=== PATIENT | female | born 1950 | race Caucasian/White ===

== ENCOUNTER 2020-10-07 13:22 | Inpatient (IN) | payer MEDICARE, BC ==
[~2020-10-07] VITALS: Ht 167.6 cm; Wt 99.8 kg
[2020-10-07] MEDS ORDERED: LORA-258 PO (13:36)
[2020-10-07] MEDS ORDERED: DILTIAZEM HCL 25 MG IV IV ONE (13:45)
--- NOTE | 2020-10-07 13:45 | NUR ---
Dr Perla at bedside for MSE.
[2020-10-07 13:55] LABS: HEMOGLOBIN 15.5 g/dL (10.9-14.3); MEAN CORPUSCULAR HEMOGLOBIN 31.6 uug (24.7-32.8); RED BLOOD CELL COUNT(AUTO) 4.91 MIL/uL (3.63-4.92)
[2020-10-07] MEDS ORDERED: DILTIAZEM HCL 25 MG IV ONE (13:55)
[2020-10-07 13:59] LABS: BASOPHILS % (AUTO) 0.6 % (0.0-2.0); EOSINOPHILS # (AUTO) 0.2 K/uL (0.0-0.7); EOSINOPHILS % (AUTO) 3.4 % (0.0-7.0); MEAN CORPUSCULAR HGB CONC 34 g/dL (32.3-35.6); MEAN CORPUSCULAR VOLUME 93.7 fL (75.5-95.3); MONOCYTES % (AUTO) 21.1 % (0.0-11.0); NEUTROPHILS # (AUTO) 2.7 K/uL (1.8-8.9); NEUTROPHILS % (AUTO) 54.9 % (38.5-71.5); PLATELET COUNT (AUTO) 227 K/uL (179-408); WHITE BLOOD COUNT (AUTO) 4.9 K/uL (3.8-11.8)
[2020-10-07] MEDS ORDERED: DILTIAZEM HCL 60 MG TABLET PO ONE (14:00)
--- NOTE | 2020-10-07 14:00 | NUR ---
received report on pt from LANIE Prak from ER. pt awake alert and oriented x3, c/o of abdominal spasms and palpitations. Pt has distended abdomen with bulge. pt had kassidy lower leg swelling, bruising on the arm that pr states was from falling. pt on tele monitor, room air saturating at 96% no signs of distress noted, no reports of pain at this time. pt wearing depends, IV access on the right AC 20g. pt cooperative, bed in low and locked position, call light within reach, will continue with plan of care.
[2020-10-07 14:02] LABS: CREATININE 1.2 mg/dL (0.6-1.3); POTASSIUM 3.8 mmol/L (3.5-5.1)
[2020-10-07] MEDS ORDERED: DILTIAZEM HCL 60 MG TABLET ONE (14:05)
[2020-10-07 14:14] LABS: BILIRUBIN,DIRECT 0.2 mg/dL (0.0-0.2); BILIRUBIN,TOTAL 0.5 mg/dL (0.2-1.0); TOTAL PROTEIN, SERUM 6.8 g/dL (6.4-8.2)
--- NOTE | 2020-10-07 14:15 | NUR ---
Pt down to CT, left in stable condition. Accompanied by Ronald DELA CRUZ, on tele monitor, left with HR around 80-90's Afib at rest.
[2020-10-07 14:28] LABS: THYROID STIMULATING HORMONE 2.85 mIU/mL (0.358-3.740)
[2020-10-07 14:32] LABS: MAGNESIUM 1.9 mg/dL (1.8-2.4)
--- NOTE | 2020-10-07 14:52 | NUR ---
Prabhakar Parrish OPERATIONS RESEARCH MANAGER accepted patient for admission. Telemetry, Dx: Afib with RVR, new onset. COVID 19 (-) result also back. Called 3rd floor for room, and notified them of the results and admission.
--- NOTE | 2020-10-07 14:53 | NUR ---
Belongings list completed and kept close to patient.
--- NOTE | 2020-10-07 15:00 | NUR ---
Dr. Perla s/w Dr. Arreola for surgery consult.
--- NOTE | 2020-10-07 15:09 | NUR ---
Dr Arreola in ER for consult.
--- NOTE | 2020-10-07 15:20 | NUR ---
Report given to Zenaida DELA CRUZ.
--- NOTE | 2020-10-07 15:33 | NUR ---
Hector Parrish NP, hospitalist, is at bedside for MSE.
[2020-10-07 15:44] VITALS: BP 102/56
[2020-10-07] MEDS ORDERED: ONDANSETRON 4 MG/2 ML VIAL IV PRN (16:00)
[2020-10-07] MEDS ORDERED: MAGNESIUM HYDROXIDE 30 ML LIQUID UDC PO PRN (16:00)
[2020-10-07] MEDS ORDERED: Z GUARD REMEDY PASTE 57 GM TUBE TOP PRN (16:00)
[2020-10-07] MEDS ORDERED: ACETAMINOPHEN 325 MG TABLET PO PRN (16:00)
[2020-10-07] MEDS ORDERED: DIATR MEGLU/DIATRIZOATE SODIUM 30 ML BOTTLE ONE (16:20)
--- NOTE | 2020-10-07 18:00 | NUR ---
pt was notified that her car would be towed if left in from of the emergency drive way. Pt was flustered and was taken down to the emergency entrance to move her car because she did not have anyone call to move it for her. She was upset the entire way to the car, she yelled at security for "calling the tow truck on a sick patient." She stated that "if she falls in the parking lot it would be the hospitals liability". Security was called to check on pt and escort her back to her hospital room. pt is now in bed resting watching tv. Will endorse to oncoming nurse.
[2020-10-07] MEDS: HYDROCODONE/APAP 5-325MG TABLET PO PRN (18:49)
[2020-10-07 18:50] LABS: BAND % (MANUAL) 8 % (0-10); EOSINOPHILS % (MANUAL) 2 % (0-8); LYMPHOCYTES % (MANUAL) 23 % (20-40); METAMYELOCYTES % 1 % (0-1); MONOCYTES % (MANUAL) 11 % (2-10); NEUTROPHILS % (MANUAL) 55 % (42-75)
--- NOTE | 2020-10-07 19:30 | NUR ---
PATIENT ALERT ORIENTED, NO SOB NO CHEST PAIN, TELE MONITOR SINUS RHYTHM AT THIS TIME. PATIENT COMPLAIN OF ABDOMINAL PAIN, MEDICATED EARLIER BY AM RN, CONT TO MONITOR.
[2020-10-07 20:00] VITALS: BP 115/56
[2020-10-07] MEDS: IV D5 1/2 NS 1000 ML 1,000 ML IV PRN (21:42)
[2020-10-07] MEDS: LORAZEPAM 0.5 MG TABLET PO PRN (22:02)
[2020-10-08] VITALS: BP 118/58
--- NOTE | 2020-10-08 01:12 | NUR ---
PATIENT VOMIT WITH SMALL AMOUNT OF CLEAR COLOR VOMITUS, INSTRUCTED NOT TO TAKE ANYTHING BY MOUTH NOW. GIVEN ZOFRAN IV CONT TO MONITOR.
--- NOTE | 2020-10-08 03:00 | NUR ---
PATIENT VOMIT SMALL AMOUNT OF BROWNISH COLOR VOMITUS, HAD LBM IN SMALL AMOUNT, INSTRUCTED PATIENT NOT EAT OR DRINK AT THIS TIME. PATIENT ASSISTED WITH TOILETING, CONT TO MONITOR.
[2020-10-08 04:03] VITALS: BP 124/66
[2020-10-08 06:46] LABS: BASOPHILS % (AUTO) 0.4 % (0.0-2.0); EOSINOPHILS % (AUTO) 1.1 % (0.0-7.0); HEMATOCRIT 42.7 % (31.2-41.9); LYMPHOCYTES # (AUTO) 0.4 K/uL (20.0-40.0); LYMPHOCYTES % (AUTO) 12.7 % (20.5-51.5); MEAN CORPUSCULAR HEMOGLOBIN 30.8 uug (24.7-32.8); MEAN CORPUSCULAR HGB CONC 33 g/dL (32.3-35.6); MEAN CORPUSCULAR VOLUME 93.9 fL (75.5-95.3); MONOCYTES # (AUTO) 0.5 K/uL (2.0-10.0); MONOCYTES % (AUTO) 16.5 % (0.0-11.0); NEUTROPHILS # (AUTO) 2.2 K/uL (1.8-8.9); NEUTROPHILS % (AUTO) 69.3 % (38.5-71.5); PLATELET COUNT (AUTO) 190 K/uL (179-408); RED BLOOD CELL COUNT(AUTO) 4.55 MIL/uL (3.63-4.92); WHITE BLOOD COUNT (AUTO) 3.2 K/uL (3.8-11.8)
[2020-10-08 06:48] LABS: BILIRUBIN,TOTAL 0.6 mg/dL (0.2-1.0); CREATININE 1.3 mg/dL (0.6-1.3); MAGNESIUM 1.8 mg/dL (1.8-2.4); POTASSIUM 3.8 mmol/L (3.5-5.1); TOTAL PROTEIN, SERUM 6.2 g/dL (6.4-8.2)
--- NOTE | 2020-10-08 07:04 | NUR ---
Patient has no further episode of vomiting, and lose bowel movement. cont to instruct patient not to drink or eat at this time. patient tele monitor with episode of pvc but unstainable., cont to monitor.
--- NOTE | 2020-10-08 07:30 | NUR ---
PATIENT RESTING IN BED WITH EYES OPEN. PATIENT VERBALIZES HER ANXIETY REGARDING HER HOSPITALIZATION. PATIENT REFUSED ATIVAN AT THIS TIME. LISTENED TO PATIENT'S WORRIES AND REASSURED HER BY EDUCATING HER ON PROCEDURES AND PROVIDING COMFORT CARE. PATIENT VERBALIZED THAT SHE HAS NO PAIN AT THIS TIME. PATIENT'S SKIN REMAINS INTACT. TELEMETRY IS SINUS RHYTHM AT THIS TIME. PATIENT HAS IVF RUNNING ORDERED AT 75 ML/H. PERSONAL BELONGINGS AND CALL LIGHT WITHIN EASY REACH. WILL CONTINUE TO MONITOR.
[2020-10-08 08:00] VITALS: BP 100/47
--- NOTE | 2020-10-08 09:00 | NUR ---
[facility] PROVIDER HARRISON AT PATIENT'S BEDSIDE. NO NEW ORDERS AT THIS TIME.
[2020-10-08 12:39] VITALS: BP 96/44
--- NOTE | 2020-10-08 13:00 | NUR ---
PROFESSOR OF BIOSTATISTICS DR ROMAN HERE AT BEDSIDE. NEW ORDER FOR METOPROLOL 12.5 MG BID NOTED AT THIS TIME.
[2020-10-08 14:56] LABS: EOSINOPHILS % (MANUAL) 1 % (0-8); LYMPHOCYTES % (MANUAL) 13 % (20-40); MONOCYTES % (MANUAL) 18 % (2-10); NEUTROPHILS % (MANUAL) 68 % (42-75)
--- NOTE | 2020-10-08 15:00 | NUR ---
Patient screaming on telephone speaking with onsite case manager with speaker on high. Instructed that it is too noisy, speaker on too loud. Other patients are disturbed and intimidated by the noise. Request that nurse can close the door.
[2020-10-08] MEDS: IV D5 1/2 NS 1000 ML 1,000 ML IV PRN (16:31)
--- NOTE | 2020-10-08 16:36 | NUR ---
PATIENT REMINDED THAT WE ARE WAITING FOR A URINE SAMPLE. PATIENT STATES THAT SHE HAS VOIDED, BUT KEEPS FORGETTING. REMINDED PATIENT THAT COLLECTION HAT IS PLACED ON THE TOILET AND WILL CONTINUE TO PROVIDE REINFORCEMENTS NEEDED. PATIENT HAS NO COMPLAINTS OF N/V OR PAIN AT THIS TIME AND IS RESTING COMFORTABLY IN BED WATCHING TV. WILL CONTINUE TO MONITOR.
[2020-10-08 16:54] VITALS: BP 105/55
[2020-10-08] MEDS: HYDROCODONE/APAP 5-325MG TABLET PO PRN (19:42)
[2020-10-08] MEDS: MORPHINE SULFATE 2 MG/1 ML DISP.SYRIN IV PRN (19:50)
[2020-10-08 20:06] VITALS: BP 96/55
[2020-10-08] MEDS: METOPROLOL TARTRATE 25 MG TABLET PO SCH (20:32)
[2020-10-09] VITALS: BP 133/78
[2020-10-09] MEDS: MORPHINE SULFATE 2 MG/1 ML DISP.SYRIN IV PRN ×2 (01:38→05:33)
[2020-10-09 02:27] LABS: *BILIRUBIN,URIN NEGATIVE (NEGATIVE); *BLOOD, URINE NEGATIVE (NEGATIVE); *CLARITY,URINE HAZY (CLEAR); *COLOR,URINE AMBER (YELLOW); *KETONES,URINE NEGATIVE (NEGATIVE); *UROBILINOGEN,URINE 0.2 E.U./dl (NORMAL); LEUKOCYTE ESTERASE ,URINE NEGATIVE (NEGATIVE); NITRITE, URINE POSITIVE (NEGATIVE); UGLUCOSE NEGATIVE (NEGATIVE)
[2020-10-09 02:32] LABS: BACTERIA,URINE MANY /HPF (NONE SEEN); RBC,URINE 0-3 /HPF (0-3); SQUAMOUS EPITHELIAL CELL,UR MODERATE /HPF (NONE SEEN)
[2020-10-09 04:06] VITALS: BP 110/54
[2020-10-09] MEDS: IV D5 1/2 NS 1000 ML 1,000 ML IV PRN ×2 (05:38→18:46)
--- NOTE | 2020-10-09 06:36 | NUR ---
Pt slept intermittently throughout the night. Denies pain or SOB. SR on monitor with PACs and PVCs. Denies chest pain. Refused blood work this AM and requests that it be done later. Requested Morphine throughout the night for pain management. Maintained NPO status throughout the night. Bed is locked and in lowest position, call light is within reach. Urine sent to lab. No other issues or concerns at this time, will endorse to day shift.
[2020-10-09 08:00] VITALS: BP 133/78
[2020-10-09] MEDS: LORAZEPAM 0.5 MG TABLET PO PRN (08:24)
[2020-10-09] MEDS: METOPROLOL TARTRATE 25 MG TABLET PO SCH ×2 (09:00→20:13)
[2020-10-09 11:29] VITALS: BP 136/85
[2020-10-09 15:57] VITALS: BP 124/59
--- NOTE | 2020-10-09 19:19 | NUR ---
Patient AOx3. on room air. Patient has Right FA #20 IV access with D5 1/2 NS running at 75cc/hr. no signs of acute distress. compliant with medication and care. no complaints of pain. safety and comfort measures given. will endorse to incoming shift.
[2020-10-09] MEDS: ENOXAPARIN SODIUM 40 MG/0.4 ML DISP.SYRIN SQ SCH (20:17)
[2020-10-09 20:27] VITALS: BP 109/55
[2020-10-10 01:04] VITALS: BP 115/61
[2020-10-10] MEDS: MORPHINE SULFATE 2 MG/1 ML DISP.SYRIN IV PRN (01:33)
[2020-10-10 05:37] VITALS: BP 115/69
[2020-10-10 05:54] LABS: BASOPHILS # (AUTO) 0.2 K/uL (0.0-8.0); BASOPHILS % (AUTO) 3.6 % (0.0-2.0); EOSINOPHILS # (AUTO) 0.1 K/uL (0.0-0.7); EOSINOPHILS % (AUTO) 2.2 % (0.0-7.0); HEMATOCRIT 36.5 % (31.2-41.9); HEMOGLOBIN 12.6 g/dL (10.9-14.3); LYMPHOCYTES # (AUTO) 0.8 K/uL (20.0-40.0); LYMPHOCYTES % (AUTO) 20.2 % (20.5-51.5); MEAN CORPUSCULAR HEMOGLOBIN 32.1 uug (24.7-32.8); MEAN CORPUSCULAR HGB CONC 35 g/dL (32.3-35.6); MEAN CORPUSCULAR VOLUME 93.2 fL (75.5-95.3); MONOCYTES # (AUTO) 1.3 K/uL (2.0-10.0); MONOCYTES % (AUTO) 30.2 % (0.0-11.0); NEUTROPHILS # (AUTO) 1.8 K/uL (1.8-8.9); NEUTROPHILS % (AUTO) 43.8 % (38.5-71.5); PLATELET COUNT (AUTO) 187 K/uL (179-408); RED BLOOD CELL COUNT(AUTO) 3.92 MIL/uL (3.63-4.92); WHITE BLOOD COUNT (AUTO) 4.2 K/uL (3.8-11.8)
[2020-10-10 06:01] LABS: BILIRUBIN,TOTAL 0.5 mg/dL (0.2-1.0); MAGNESIUM 1.7 mg/dL (1.8-2.4); POTASSIUM 3.6 mmol/L (3.5-5.1); TOTAL PROTEIN, SERUM 5.8 g/dL (6.4-8.2)
[2020-10-10 06:22] LABS: BAND % (MANUAL) 4 % (0-10); EOSINOPHILS % (MANUAL) 2 % (0-8); LYMPHOCYTES % (MANUAL) 22 % (20-40); MONOCYTES % (MANUAL) 21 % (2-10); NEUTROPHILS % (MANUAL) 51 % (42-75)
[2020-10-10 06:24] LABS: BAND % (MANUAL) 4 % (0-10); EOSINOPHILS % (MANUAL) 2 % (0-8); LYMPHOCYTES % (MANUAL) 22 % (20-40); MONOCYTES % (MANUAL) 21 % (2-10); NEUTROPHILS % (MANUAL) 51 % (42-75)
--- NOTE | 2020-10-10 06:42 | NUR ---
Pt slept intermittently throughout the night. Kept NPO status. Diet changed to Full Liquid but kept NPO for Small Bowel Xray this AM. Denies pain or SOB at this time. No distress noted. Dr. Arreola updated and he stated he wants patient to ambulate more today. IV site patent and intact. Bed is locked and in lowest position, no other issues at this time. Will endorse to day shift.
--- NOTE | 2020-10-10 07:30 | NUR ---
RECEIVED IN BED AWAKE ALERT AND ORIENTED ON IVF ORDERED WITH NO S/S OF INFILTERQATION ON SITE SHE IS ALERT AND ORIENTED SHE IS NPO AT THIS TIME PENDING THE SMALL BOWEL SERIES ORDERED AND PATIENT IS AWARE CALL LIGHTS AND HER PERSONAL BELONGINGS ARE WITHIN EASY REACH AT THIS TIME WILL CONTINUE TO OBSERVE.
[2020-10-10] MEDS: IV D5 1/2 NS 1000 ML 1,000 ML IV PRN (08:33)
[2020-10-10] MEDS ORDERED: MAGNESIUM SULFATE/D5W 100 ML IV SCH (08:45)
--- NOTE | 2020-10-10 08:58 | NUR ---
RADIOLOGY DEPARTMENT HERE FOR SMALL BOWEL SERIES ORDERED BUT PATIENT REFUSED HARRISON HERE AND NOTIFIED AND HE STATED OKAY WILL CANCEL IT.
[2020-10-10] MEDS ORDERED: ENOXAPARIN SODIUM 100 MG/ML DISP.SYRIN SQ SCH (09:00)
[2020-10-10] MEDS: METOPROLOL TARTRATE 25 MG TABLET PO SCH (09:00)
--- NOTE | 2020-10-10 09:30 | NUR ---
FULL LIQUIDS DIET GIVEN TO PATIENT ORDERED AND SHE ONLY DRANK THE ENSURE AND THE COFFEE STATED WANTS TO TAKE IT EASY FIRST
--- NOTE | 2020-10-10 09:44 | NUR ---
PATIENT SEEN BY THE PHYSICAL THERAPIST FOR THERAPEUTIC EXERCISES AND SHE WALKED WITH THE FRONT WHEEL WALKER IN THE FRITZ WAY WITH FAIR ENDURANCE TOLERATED WELL
[2020-10-10 11:32] VITALS: BP 137/68
--- NOTE | 2020-10-10 13:29 | NUR ---
IV HEPLOCK PULLED OUT ACCIDENTLY AT THIS TIME PATIENT REFUSED TO HAVE A NEW ONE PLACED STATED SINCE HE WILL NOT BE GETTING ANYTHING THROUGH THERE.
[2020-10-10 16:00] VITALS: BP 119/69
--- NOTE | 2020-10-10 18:00 | NUR ---
PATIENT IS RESTING IN BED UP IN AND OUT OF THE BATHROOM [place] DIET ORDERED DENIES NAUSEA NO DIARRHEA EPISODES AT THIS TIME.WILL CONTINUE TO OBSERVE
[2020-10-10 20:06] VITALS: BP 145/79
[2020-10-10] MEDS: ENOXAPARIN SODIUM 40 MG/0.4 ML DISP.SYRIN SQ SCH (21:01)
[2020-10-10] MEDS: HYDROCODONE/APAP 5-325MG TABLET PO PRN (22:28)
[2020-10-11 00:03] VITALS: BP 117/58
[2020-10-11 04:09] VITALS: BP 148/79
--- NOTE | 2020-10-11 06:26 | NUR ---
Pt slept throughout the night. Denies SOB. Bed is locked and in lowest position, call light within reach. Attempted to restart IV, pt declined. Keeps stating that she wants to go home and leave the hospital. Pt states that abdominal discomfort is subsiding and getting better. No other issues or concerns at this time, will endorse to day shift.
[2020-10-11 06:28] LABS: BASOPHILS # (AUTO) 0.1 K/uL (0.0-8.0); BASOPHILS % (AUTO) 0.8 % (0.0-2.0); EOSINOPHILS # (AUTO) 0.1 K/uL (0.0-0.7); EOSINOPHILS % (AUTO) 1.9 % (0.0-7.0); HEMATOCRIT 40.7 % (31.2-41.9); HEMOGLOBIN 13.7 g/dL (10.9-14.3); LYMPHOCYTES # (AUTO) 0.9 K/uL (20.0-40.0); LYMPHOCYTES % (AUTO) 13.7 % (20.5-51.5); MEAN CORPUSCULAR HEMOGLOBIN 31.2 uug (24.7-32.8); MEAN CORPUSCULAR HGB CONC 34 g/dL (32.3-35.6); MEAN CORPUSCULAR VOLUME 92.9 fL (75.5-95.3); MONOCYTES # (AUTO) 1.4 K/uL (2.0-10.0); NEUTROPHILS # (AUTO) 4.4 K/uL (1.8-8.9); NEUTROPHILS % (AUTO) 63.6 % (38.5-71.5); PLATELET COUNT (AUTO) 217 K/uL (179-408); RED BLOOD CELL COUNT(AUTO) 4.38 MIL/uL (3.63-4.92); WHITE BLOOD COUNT (AUTO) 6.9 K/uL (3.8-11.8)
[2020-10-11 06:36] LABS: CREATININE 0.8 mg/dL (0.6-1.3); POTASSIUM 3.5 mmol/L (3.5-5.1)
[2020-10-11 07:41] LABS: BASOPHILS % (MANUAL) 1 % (0-2); EOSINOPHILS % (MANUAL) 2 % (0-8); LYMPHOCYTES % (MANUAL) 10 % (20-40); MONOCYTES % (MANUAL) 16 % (2-10); MYELOCYTES % 1 % (0-0); NEUTROPHILS % (MANUAL) 70 % (42-75)
--- NOTE | 2020-10-11 08:00 | NUR ---
PATIENT IN ROOM LOOKING VERY ANXIOUS AND WANTS TO GO HOME, NO SS OF DISTRESS OR ACUTE ABDOMINAL PAIN , SR ON MONITOR. AWAITING MD TO FOLLOW-UP
[2020-10-11] MEDS ORDERED: POTASSIUM CHLORIDE 20 MEQ POWDER PACKET PO ONE (09:30)
[2020-10-11 11:33] VITALS: BP 160/71
[2020-10-11] MEDS ORDERED: APIX5TAB PO (12:45)
--- NOTE | 2020-10-11 12:45 | NUR ---
SEEN BY HOSPITALIST AND ADVISED PATIENT TO FOLLOW-UP GENERAL SURGEON AND PCP, PATIENT PREFERS TO GO HOME IN SPITE OF MD ADVISED.
[2020-10-11 15:52] VITALS: BP 125/68
--- NOTE | 2020-10-11 17:00 | NUR ---
DISCHARGE HOME AMA WITH RX AND FOLLOW-UP INSTRUCTION.
[2020-10-11 22:24] LABS: ALBUMIN 2.6 LOW
[2020-10-11 22:25] LABS: ALPHA-1-GLOBULIN 0.3; ALPHA-2-GLOBULIN 0.8; BETA GLOBULIN 0.9
[2020-10-11 22:26] LABS: GAMMA GLOBULIN 0.7; GLOBULIN, TOTAL 2.7; M-SPIKE Not Observed
== END 2020-10-11 17:00 | disposition left against medical advice (07) | DRG 393 ==
LOC: ER 13:22 → TELE3 15:28
PROVIDERS: ADMIT Nurse Practitioner Acute Care; ATTEND Nurse Practitioner Family
DX: K43.0 Incisional hernia with obstruction, without gangrene (principal); N17.0 Acute kidney failure with tubular necrosis; D68.69 Other thrombophilia; E44.0 Moderate protein-calorie malnutrition; I48.0 Paroxysmal atrial fibrillation; F39 Unspecified mood [affective] disorder; F41.9 Anxiety disorder, unspecified; Z86.718 Personal history of other venous thrombosis and embolism; E88.09 Other disorders of plasma-protein metabolism, not elsewhere classified; Z90.710 Acquired absence of both cervix and uterus; Z85.42 Personal history of malignant neoplasm of other parts of uterus; E66.01 Morbid (severe) obesity due to excess calories; Z68.35 Body mass index [BMI] 35.0-35.9, adult; Z20.822 Contact with and (suspected) exposure to COVID-19; Z71.3 Dietary counseling and surveillance; I35.0 Nonrheumatic aortic (valve) stenosis; R73.9 Hyperglycemia, unspecified
CPT/HCPCS: 36415; 70030-TC; 71045; 74250; 83605; 83690; 83735; 83970; 84100; 84155; 84165; 84443; 85025; 85730; 87086; 93005; 93307; A4663; G0378; J1650; J2270; J2405; J3475; J3490; Q9963

== ENCOUNTER 2021-04-12 16:47 | Emergency (ER) | payer MEDICARE ==
[~2021-04-12] VITALS: Ht 165.1 cm; Wt 90.7 kg
[~2021-04-12 16:47] MED LIST: APIX5TAB PO
[2021-04-12] MEDS ORDERED: KETOROLAC TROMETHAMINE 15 MG INJ IVP ONE (17:00)
[2021-04-12] MEDS ORDERED: IV NORMAL SALINE 1000 ML BAG IV ONE (17:00)
[2021-04-12] MEDS ORDERED: ONDANSETRON 4 MG/2 ML VIAL IV ONE (17:00)
[2021-04-12] MEDS ORDERED: ONDANSETRON 4 MG/2 ML VIAL ONE (17:08)
[2021-04-12] MEDS ORDERED: KETOROLAC TROMETHAMINE 30 MG INJ ONE (17:08)
[2021-04-12] MEDS ORDERED: DICYCLOMINE HCL LIQ 10 MG/5 ML UDC ONE (17:08)
[2021-04-12 17:09] LABS: HEMATOCRIT 47.5 % (31.2-41.9); MEAN CORPUSCULAR HEMOGLOBIN 31.2 uug (24.7-32.8); MEAN CORPUSCULAR VOLUME 93.4 fL (75.5-95.3); PLATELET COUNT (AUTO) 206 K/uL (179-408)
[2021-04-12] MEDS: DICYCLOMINE HCL 10 MG CAPSULE PO PRN (17:10)
[2021-04-12 17:17] LABS: CREATININE 0.9 mg/dL (0.6-1.3); POTASSIUM 4.1 mmol/L (3.5-5.1)
[2021-04-12 17:23] LABS: BILIRUBIN,DIRECT 0.1 mg/dL (0.0-0.2); BILIRUBIN,TOTAL 0.5 mg/dL (0.2-1.0); TOTAL PROTEIN, SERUM 7.2 g/dL (6.4-8.2)
[2021-04-12] MEDS ORDERED: ONDA4TAB11 PO (17:39)
[2021-04-12] MEDS ORDERED: DICY10CA13 PO (17:39)
--- NOTE | 2021-04-12 17:40 | NUR ---
pt tolerated po challenge.
[2021-04-12 17:54] VITALS: BP 141/69
--- NOTE | 2021-04-12 17:54 | NUR ---
Patient discharged to home in stable condition. Written and verbal after care instructions given. Patient verbalizes understanding of instructions. Stressed follow up or return to ER for worsening s/s.pt walks in steady gait.
[2021-04-12 17:56] LABS: BAND % (MANUAL) 2 % (0-10); LYMPHOCYTES % (MANUAL) 23 % (20-40); NEUTROPHILS % (MANUAL) 50 % (42-75)
[2021-04-12 17:57] LABS: MONOCYTES % (MANUAL) 25 % (2-10)
== END 2021-04-12 17:55 | disposition home or self-care (01) ==
LOC: ER 16:50
DX: R10.9 Unspecified abdominal pain (principal); R11.2 Nausea with vomiting, unspecified; K43.9 Ventral hernia without obstruction or gangrene; E86.0 Dehydration; R03.0 Elevated blood-pressure reading, without diagnosis of hypertension; Z85.42 Personal history of malignant neoplasm of other parts of uterus; N32.81 Overactive bladder; F41.9 Anxiety disorder, unspecified; Z90.710 Acquired absence of both cervix and uterus; I48.91 Unspecified atrial fibrillation; Z79.01 Long term (current) use of anticoagulants
CPT/HCPCS: 36415; 80048; 80076; 83690; 84484; 85007; 85025; 93005; 96361; 96374; 96375; 99284; J1885; J2405; 70030-TC; A4663; J7030

== ENCOUNTER 2021-05-09 07:24 | Emergency (ER) | payer MEDICARE ==
[~2021-05-09] VITALS: Ht 170.2 cm; Wt 90.7 kg
[~2021-05-09 07:24] MED LIST changes: +DICY10CA13 PO; +ONDA4TAB11 PO
--- NOTE | 2021-05-09 08:28 | NUR ---
Patient is AOx4, "I want to wait in the waiting room. My cellphone does not work inside the room." per patient's verbalization.
--- NOTE | 2021-05-09 08:44 | NUR ---
MD is in the waiting room attempting to examine this patient. Patient does not want to be in her room (ER bed-5A)@this time.
[2021-05-09 09:15] LABS: HEMATOCRIT 41.9 % (31.2-41.9); MEAN CORPUSCULAR HEMOGLOBIN 31.1 uug (24.7-32.8); MEAN CORPUSCULAR VOLUME 93.1 fL (75.5-95.3); PLATELET COUNT (AUTO) 243 K/uL (179-408)
[2021-05-09 09:22] LABS: CREATININE 0.9 mg/dL (0.6-1.3); POTASSIUM 3.9 mmol/L (3.5-5.1)
--- NOTE | 2021-05-09 09:29 | NUR ---
Patient is back in her room, after moving her car from a "no parking zone" as instructed by network security engineer Sarmad. Radiology department notified re: ultrasound scan please.
[2021-05-09 09:35] LABS: BILIRUBIN,DIRECT 0.1 mg/dL (0.0-0.2); BILIRUBIN,TOTAL 0.4 mg/dL (0.2-1.0); TOTAL PROTEIN, SERUM 7.3 g/dL (6.4-8.2)
--- NOTE | 2021-05-09 10:04 | NUR ---
Patient wants to see a professor of social work. Enedina was called.
--- NOTE | 2021-05-09 10:12 | NUR ---
[email or web address].
--- NOTE | 2021-05-09 11:08 | NUR ---
Patient and social media analyst are talking to each other, pending disposition.
--- NOTE | 2021-05-09 11:31 | NUR ---
Social Work APS Report Protective Services Report (Intake ID [id number]) was submitted on 05/09/2021 at 11:27 AM. A copy of the report is placed in the patient's chart.
[2021-05-09] MEDS ORDERED: CEPH500C2 PO (11:40)
--- NOTE | 2021-05-09 11:52 | NUR ---
Patient denies being homeless and stays in her condo unit. Patient discharged to home in stable condition with steady gait. Written and verbal after care instructions given to patient. Patient verbalized understanding and compliance of instructions. Stressed follow up with primary doctor or return to ER for worsening s/s.
--- NOTE | 2021-05-09 13:50 | NUR ---
Social Work Consult Patient requested to speak with social work professor. Patient is alert and oriented x4. Patient presented with a depressed mood and flat affect. Patient was not groomed well, unkept, and dirty. Patient appeared to not be able to keep up with proper hygiene. Patient was able to engage in conversation with social work professor about her current needs. Patient stated that she was in need of an missile mechanic due to the home owners association trying to get her out of her home. form worker encouraged patient to reach out to current missile mechanic. form worker provided patient with mental health resources [facility] [address] [place] [address], [place] well [place] [address] . form worker provided patient with Senior Resource Guide that included grief and bereavement resources, caregiver support, and senior centers. Plan: form worker will report an APS for self neglect.
== END 2021-05-09 12:28 | disposition home or self-care (01) ==
LOC: ER 07:24
DX: L03.116 Cellulitis of left lower limb (principal); Z59.89 Other problems related to housing and economic circumstances; Z85.89 Personal history of malignant neoplasm of other organs and systems; I48.91 Unspecified atrial fibrillation; Z79.01 Long term (current) use of anticoagulants; Z90.710 Acquired absence of both cervix and uterus; N32.81 Overactive bladder; Z79.899 Other long term (current) drug therapy
CPT/HCPCS: 36415; 70030-TC; 83605; 85025; 87040; A4663

== ENCOUNTER 2021-06-04 18:21 | Inpatient (IN) | payer MEDICARE ==
[~2021-06-04] VITALS: Ht 170.2 cm; Wt 98.9 kg
[~2021-06-04 18:21] MED LIST changes: +CEPH500C2 PO
[2021-06-04] MEDS ORDERED: IV NORMAL SALINE 1000 ML BAG IV ONE (19:15)
[2021-06-04 19:37] LABS: MEAN CORPUSCULAR HEMOGLOBIN 31.2 uug (24.7-32.8); PLATELET COUNT (AUTO) 215 K/uL (179-408)
[2021-06-04 19:51] LABS: ETHANOL < 3 MG/DL (0-0)
[2021-06-04 19:58] LABS: CARBON DIOXIDE 29 mmol/L (21-32); CHLORIDE 101 mmol/L (98-107); CREATININE 1.1 mg/dL (0.6-1.3); GLUCOSE 123 mg/dL (74-106); POTASSIUM 4.2 mmol/L (3.5-5.1); UREA NITROGEN, BLOOD 20 mg/dL (7-18)
[2021-06-04 20:03] LABS: ALANINE AMINOTRANSFERASE 22 U/L (14-59); ALKALINE PHOSPHATASE 73 U/L (50-136); ASPARTATE AMINOTRANSFERASE 32 U/L (15-37); BILIRUBIN,DIRECT 0.2 mg/dL (0.0-0.2); BILIRUBIN,TOTAL 0.7 mg/dL (0.2-1.0); MAGNESIUM 1.8 mg/dL (1.8-2.4); PHOSPHOROUS 3.7 mg/dL (2.5-4.9); TOTAL PROTEIN, SERUM 7.7 g/dL (6.4-8.2)
[2021-06-04 20:04] LABS: THYROID STIMULATING HORMONE 2.216 mIU/mL (0.358-3.740)
[2021-06-04] MEDS ORDERED: VANCOMYCIN IV 1,500 MG in IV DEXTROSE 5% 500 ML IV STA (20:47)
[2021-06-04] MEDS ORDERED: FUROSEMIDE 40 MG/4 ML VIAL IV ONE (21:00)
[2021-06-04] MEDS ORDERED: VANCOMYCIN HCL 500 MG VIAL ONE ×2 (22:13→22:19)
[2021-06-04] MEDS ORDERED: VANCOMYCIN IV 200 ML ONE (22:13)
[2021-06-04] MEDS ORDERED: FUROSEMIDE 40 MG/4 ML VIAL ONE (22:13)
[2021-06-04] MEDS ORDERED: VANCOMYCIN 1000 MG VIAL ONE (22:19)
--- NOTE | 2021-06-04 22:35 | NUR ---
Pt. admitted to Med/Surg, under care of Tim Dx: Left Foot Cellulitis/Edema Belongs List completed
--- NOTE | 2021-06-04 22:35 | NUR ---
Received report from ER nurse.
[2021-06-04] MEDS ORDERED: MAGNESIUM HYDROXIDE 30 ML LIQUID UDC PO PRN (22:45)
[2021-06-04] MEDS ORDERED: Z GUARD REMEDY PASTE 57 GM TUBE TOP PRN (22:45)
[2021-06-04] MEDS ORDERED: ZOLPIDEM 5 MG TABLET PO PRN (22:45)
[2021-06-04] MEDS ORDERED: ONDANSETRON 4 MG/2 ML VIAL IV PRN (22:45)
--- NOTE | 2021-06-04 22:55 | NUR ---
Received patient via [employer]. AOx4. IV on right AC gauge 20 running Vancomycin IV 1,500 mg in IV D5% 500ml running at 250ml/hr. Patient is admitted to medical surgical floor with leg foot cellulitis as her admitted diagnosis. Established nurse-patient rapport. Oriented patient to room, bed and call light button, patient verbalized understanding. Patient denies SOB, chest pain or dizziness at this time. Will continue to monitor.
--- NOTE | 2021-06-04 23:15 | NUR ---
Patient's IV site on R AC was dislodged, requested for midline nurse's assistance. Noted patient's skin issues, cleansed with NS, photos were taken and attached to chart.
[2021-06-05 00:03] LABS: *BILIRUBIN,URIN NEGATIVE (NEGATIVE); *CLARITY,URINE SLIGHTLY CLOUDY (CLEAR); *COLOR,URINE LIGHT YELLOW (YELLOW); *KETONES,URINE NEGATIVE (NEGATIVE); *UROBILINOGEN,URINE 0.2 E.U./dl (NORMAL); LEUKOCYTE ESTERASE ,URINE 1+ (NEGATIVE); NITRITE, URINE POSITIVE (NEGATIVE); UGLUCOSE NEGATIVE (NEGATIVE)
[2021-06-05 00:14] LABS: *AMPHETAMINE, URINE NEGATIVE (NEGATIVE); *CANNABINOID, URINE NEGATIVE (NEGATIVE); *COCCAINE, URINE NEGATIVE (NEGATIVE); *OPIATE, URINE NEGATIVE (NEGATIVE); *PHENCYCLIDINE SCREEN,URINE NEGATIVE (NEGATIVE)
[2021-06-05 00:20] VITALS: BP 126/41
--- NOTE | 2021-06-05 00:30 | NUR ---
IV was reinserted. IV left upper arm midline, gauge 20.
[2021-06-05] MEDS: APIXABAN 5 MG TABLET PO SCH ×3 (00:49→21:00)
[2021-06-05 01:16] LABS: *BLOOD, URINE TRACE (NEGATIVE)
[2021-06-05 02:14] LABS: BACTERIA,URINE MANY /HPF (NONE SEEN); RED BLOOD CELL CASTS,URINE FEW /LPF (NONE SEEN); SQUAMOUS EPITHELIAL CELL,UR FEW /HPF (NONE SEEN)
--- NOTE | 2021-06-05 02:30 | NUR ---
Noted patient's urinary incontinence and urinary frequency, offered patient to insert hamilton catheter to keep scabs found on buttocks and groin clean and dry. However,patient refused despite health teaching.
[2021-06-05] MEDS: PANTOPRAZOLE SODIUM 40 MG TABLET.DR PO SCH (06:30)
[2021-06-05 06:43] LABS: HEMATOCRIT 40.1 % (31.2-41.9); MEAN CORPUSCULAR HEMOGLOBIN 30.9 uug (24.7-32.8); MEAN CORPUSCULAR VOLUME 92.2 fL (75.5-95.3); PLATELET COUNT (AUTO) 188 K/uL (179-408)
--- NOTE | 2021-06-05 06:48 | NUR ---
Patient slept intermittently through the night, now calm. AOx4. No acute distress noted at this time. IV on L UA midline patent and intact. All due medications were given as ordered. Safety measures and aspiration precautions were maintained. Will endorse to day shift nurse.
[2021-06-05 07:00] LABS: CREATININE 1.1 mg/dL (0.6-1.3); MAGNESIUM 1.8 mg/dL (1.8-2.4); PHOSPHOROUS 3.7 mg/dL (2.5-4.9); POTASSIUM 3.6 mmol/L (3.5-5.1)
[2021-06-05 07:16] LABS: NEUTROPHILS % (MANUAL) 0 % (42-75)
[2021-06-05] MEDS ORDERED: CEFTRIAXONE 1 G in IV DEXTROSE 5% 50 ML IV SCH (08:30)
[2021-06-05] MEDS: CEFTRIAXONE 2 G in IV DEXTROSE 5% 100 ML IV SCH (09:34)
[2021-06-05 12:00] VITALS: BP 119/55
--- NOTE | 2021-06-05 12:50 | NUR ---
WOUND CARE CONSULT: PT PRESENTS WITH RASH/CRUSTING AND OPEN AREAS TO BUTTOCKS, PRESENT ON ADMISSION. PT ALSO NOTED TO HAVE REDNESS AND TENDERNESS WITH DISCOLORATION/CALLUS TO LEFT FOOT, PRESENT ON ADMISSION. DPM CONSULT CALLED TO DR CHACON AND SURGICAL CONSULT TO DR YU TAVARES. RECOMMENDATIONS MADE FOR SKIN PROTECTION AND WOUND CARE. DISCUSSED WITH NURSING STAFF. PT IS INCONTINENT. MD IN AGREEMENT WITH PLAN OF CARE.
[2021-06-05] MEDS ORDERED: ASPI-1420 PO (14:42)
[2021-06-05] MEDS ORDERED: VITAMIN D 5000 UNITS PO (14:42)
[2021-06-05] MEDS ORDERED: ASPI81TA31 PO (14:42)
[2021-06-05] MEDS ORDERED: MAGN400C PO (14:42)
[2021-06-05] MEDS ORDERED: ASPI-618 PO (14:42)
[2021-06-05] MEDS ORDERED: MAGN200T5 PO (14:44)
--- NOTE | 2021-06-05 15:22 | NUR ---
Pt is a/o x 4, has bilateral edema on lower extremities. Wound care consult completed, orders in place. Pt is bedbound, PT consult ordered. Pt is incontinent, incontinence is most likely why her bottocks has scabs and wounds. Pt refused hamilton catheter insertion. Pt refuses to have a shower or bed bath, educated on importance of keeping wound clean to allow for healing. Pt wanted to go check on her car, notified her that she is unable to leave hospital room. Placed a case management/ social work consult for pt for housing and resources. States she lives in an apartment but does not have furniture or help, lives alone. Pt is currently resting in room, no signs of acute distress, call light within reach. Will continue to monitor.
--- NOTE | 2021-06-05 16:06 | NUR ---
Clinical Social Work Note SW consult was requested for evaluation on safe discharge. Patient is a 71 year old female who is alert and oriented x4. Patient presents with a depressed mood and flat affect. Patient was not groomed well, unkept, and dirty. Patient appeared to not be able to keep up with proper hygiene. Patient stated that she is currently working on the mold in her home and she has no furniture in her home. SW discussed SNF placement upon discharge, but patient refused. Patient stated that she does not want a SNF and that she would like to return home to take care of her situation. Patient stated that she would be interested in home health. Plan: CM will follow up with case folder to have patient set up with home health.
[2021-06-05 16:14] VITALS: BP 139/46
[2021-06-05] MEDS: CLOTRIMAZOLE 1% CREAM 30 GM TUBE TOP SCH (17:08)
[2021-06-05] MEDS: HYDROCODONE/APAP 5-325MG TABLET PO PRN (17:09)
--- NOTE | 2021-06-05 18:40 | NUR ---
Pt is a/o x 4, dishevelled. Gave patient a semi bed bath, she refuses to have one. Cleaned perineal area and applied dressing to wound on buttocks. Explained importance of cleanliness to pt, she agreed to have a shower once PT is able to clear her. Pt complained of pain in right upper arm and left leg, administered Bentley at 1709, pt stated medication was effective. Pt is currently in bed resting, no complaint of pain, no signs of acute distress. Comfort measures provided, call light within reach. Will endorse to casino shift manager.
[2021-06-05] MEDS ORDERED: LIDOCAINE 5% OINT 35.44 GM TUBE TOP PRN (19:15)
[2021-06-05] MEDS ORDERED: MINERAL OIL/PETROLATUM,WHITE 57 GM TUBE TOP PRN (19:15)
[2021-06-05 20:12] VITALS: BP 112/47
[2021-06-05 21:30] VITALS: BP 112/47
[2021-06-05] MEDS: VANCOMYCIN IV 1,500 MG in IV DEXTROSE 5% 500 ML IV SCH (22:23)
[2021-06-06] MEDS: HYDROCODONE/APAP 5-325MG TABLET PO PRN ×2 (02:16→09:23)
--- NOTE | 2021-06-06 04:17 | NUR ---
Patient is alert oriented x 4, resting in bed, offer to change her linen and bed. patient refused stating she is comfortable, bed weaver provided x2 voided, provided PM care Explained importance of hygiene to patient , she agreed to have a shower once Patient is able to clear her.Pt complained of pain in neck and left leg, administered [place] at 0217 patient stated medication was effective. Pt is currently in bed resting, no complaint of pain, no signs of acute distress. Comfort measures provided, call light within reach. Will endorse to clinical application manager.
[2021-06-06 04:18] VITALS: BP 121/59
--- NOTE | 2021-06-06 06:00 | NUR ---
Patient agreed changed linen, provided fei-care, bed bath given, treatment done as ordered. all due medication administered as ordered. kept clean and dry, call light with in reach. Patient is very concern for her wound Dr. If possible please ask wound Doctor to see her. she has concerns . will endorse accordingly to AM Nurse.
[2021-06-06] MEDS: PANTOPRAZOLE SODIUM 40 MG TABLET.DR PO SCH (06:01)
[2021-06-06 06:38] LABS: HEMATOCRIT 39.4 % (31.2-41.9); MEAN CORPUSCULAR HEMOGLOBIN 31.6 uug (24.7-32.8); PLATELET COUNT (AUTO) 186 K/uL (179-408)
[2021-06-06 06:56] LABS: MAGNESIUM 1.8 mg/dL (1.8-2.4); PHOSPHOROUS 3.6 mg/dL (2.5-4.9)
[2021-06-06] MEDS ORDERED: MAGNESIUM 200 MG PO SCH (09:00)
[2021-06-06] MEDS ORDERED: VITAMIN D 5000 UNIT PO SCH (09:00)
[2021-06-06] MEDS: CHOLECALCIFEROL 1,000 UNIT TABLET PO SCH (09:21)
[2021-06-06] MEDS: GENTAMICIN SULFATE 0.1% OINT 15 GM TUBE TOP SCH (09:21)
[2021-06-06] MEDS: ASPIRIN EC 81 MG TABLET.DR PO SCH (09:21)
[2021-06-06] MEDS: MAGNESIUM OXIDE 250 MG TABLET PO SCH (09:21)
[2021-06-06] MEDS: CLOTRIMAZOLE 1% CREAM 30 GM TUBE TOP SCH ×2 (09:22→17:00)
[2021-06-06] MEDS: APIXABAN 5 MG TABLET PO SCH ×2 (09:24→21:10)
[2021-06-06] MEDS: CEFTRIAXONE 2 G in IV DEXTROSE 5% 100 ML IV SCH (09:34)
--- NOTE | 2021-06-06 11:31 | NUR ---
Social Work APS Report Protective Services Report (Intake ID [id number]) was submitted on 06/06/2021 at 11:14 AM.
--- NOTE | 2021-06-06 19:45 | NUR ---
Patient AAO x4. Patient is upset, screaming at staff. Requested patient to move her vehicle which is inappropriately parked in front of hospital. She became upset. Discussed her health status with Charge Nurse and made security aware if it is okay to leave car where it is now. Security agreed it is okay for car to stay since patient is unable to move it. Patient agrees and was pleased. On RA, no c/o SOB. C/O tenderness to left foot. Needs assessed and met. Call light with in reach.
[2021-06-06 20:00] VITALS: BP 103/44
[2021-06-06] MEDS: VANCOMYCIN IV 1,500 MG in IV DEXTROSE 5% 500 ML IV SCH (21:11)
[2021-06-07] MEDS: ACETAMINOPHEN 325 MG TABLET PO PRN ×2 (03:01→10:53)
[2021-06-07 04:00] VITALS: BP 101/40
[2021-06-07] MEDS: PANTOPRAZOLE SODIUM 40 MG TABLET.DR PO SCH (06:04)
--- NOTE | 2021-06-07 06:51 | NUR ---
Patient remained stable for this shift. No significant events. Wound treatment provided for left foot, thighs and buttocks. Tolerates treatments well. Slept intermittently. Patient is repetitive and anxious. States she is not homeless, states she has a condo but there is a plumbing issue. All needs attended. Call light within reach.
--- NOTE | 2021-06-07 07:15 | NUR ---
Received patient in bed. AOx4. On room air. No signs of acute distress. Patient denies pain/ discomfort at this time. Left UA midline patent and intact. Call light within reach. Bed alarm on for safety. Will continue to monitor.
[2021-06-07] MEDS: CEFTRIAXONE 2 G in IV DEXTROSE 5% 100 ML IV SCH (08:51)
[2021-06-07] MEDS: ASPIRIN EC 81 MG TABLET.DR PO SCH (08:52)
[2021-06-07] MEDS: CHOLECALCIFEROL 1,000 UNIT TABLET PO SCH (08:52)
[2021-06-07] MEDS: APIXABAN 5 MG TABLET PO SCH ×2 (08:53→20:32)
[2021-06-07] MEDS: GENTAMICIN SULFATE 0.1% OINT 15 GM TUBE TOP SCH (09:04)
[2021-06-07] MEDS: CLOTRIMAZOLE 1% CREAM 30 GM TUBE TOP SCH ×2 (09:05→17:09)
[2021-06-07] MEDS: MAGNESIUM OXIDE 250 MG TABLET PO SCH (09:35)
[2021-06-07 11:00] VITALS: BP 118/65
[2021-06-07 15:05] VITALS: BP 111/57
--- NOTE | 2021-06-07 20:00 | NUR ---
Patient AAO x4. On RA, no c/o SOB. C/O tenderness to left foot, elevated on pillow. Midline to left upper arm is intact and patent. Patient made aware she will have [place] Trough level done at 2100, she agrees. Needs assessed and met. Safety measures initiated. Call light with in reach.
[2021-06-07 20:25] VITALS: BP 112/40
[2021-06-07] MEDS: VANCOMYCIN IV 1,500 MG in IV DEXTROSE 5% 500 ML IV SCH (22:33)
[2021-06-08] MEDS: ACETAMINOPHEN 325 MG TABLET PO PRN (00:28)
[2021-06-08 04:00] VITALS: BP 115/51
[2021-06-08] MEDS: PANTOPRAZOLE SODIUM 40 MG TABLET.DR PO SCH (06:32)
--- NOTE | 2021-06-08 06:51 | NUR ---
Patient slept intermittent tis shift. No significant events. Wound treatment provided for left foot, thighs and buttocks. Tolerates treatments well. Able to make needs known. Patient is repetitive and anxious. Emotional support provided. All needs attended. Call light within reach.
[2021-06-08] MEDS ORDERED: SULF1TAB47 PO (07:42)
[2021-06-08] MEDS: CHOLECALCIFEROL 1,000 UNIT TABLET PO SCH (08:10)
[2021-06-08] MEDS: ASPIRIN EC 81 MG TABLET.DR PO SCH (08:10)
[2021-06-08] MEDS: APIXABAN 5 MG TABLET PO SCH (08:11)
[2021-06-08] MEDS: MAGNESIUM OXIDE 250 MG TABLET PO SCH (08:19)
[2021-06-08] MEDS: GENTAMICIN SULFATE 0.1% OINT 15 GM TUBE TOP SCH (09:02)
[2021-06-08] MEDS: CEFTRIAXONE 2 G in IV DEXTROSE 5% 100 ML IV SCH (09:02)
[2021-06-08] MEDS: CLOTRIMAZOLE 1% CREAM 30 GM TUBE TOP SCH (09:02)
[2021-06-08 11:00] VITALS: BP 125/57
--- NOTE | 2021-06-08 13:41 | NUR ---
dc orders received noted and carried out,dc instruction and education given to the pt ,dc midline per md orderspt left the facility via private car in stable condition
--- NOTE | 2021-06-13 16:12 | NUR ---
Clinical Social Work Note CM spoke with APS (Lorna [phone]) who requested information regarding patient. CM informed Lorna about patient's DC date and patient refusing placement.
== END 2021-06-08 13:45 | disposition home health service (06) | DRG 603 ==
LOC: ER 18:30 → MEDSURG3 22:42
PROVIDERS: ADMIT Nurse Practitioner Acute Care; ATTEND Nurse Practitioner Acute Care
PROC: 05HA33Z Insertion of Infusion Device into Left Brachial Vein, Percutaneous Approach (ICD-10-PCS; principal; 2021-06-05)
DX: L03.116 Cellulitis of left lower limb (principal); N39.0 Urinary tract infection, site not specified; E66.01 Morbid (severe) obesity due to excess calories; E86.0 Dehydration; I48.0 Paroxysmal atrial fibrillation; Z79.01 Long term (current) use of anticoagulants; B96.20 Unspecified Escherichia coli [E. coli] as the cause of diseases classified elsewhere; B36.9 Superficial mycosis, unspecified; B35.1 Tinea unguium; F32.A Depression, unspecified; F41.9 Anxiety disorder, unspecified; Z68.31 Body mass index [BMI] 31.0-31.9, adult; I50.9 Heart failure, unspecified; I89.0 Lymphedema, not elsewhere classified; L84 Corns and callosities; Z83.3 Family history of diabetes mellitus; Z85.42 Personal history of malignant neoplasm of other parts of uterus; Z90.710 Acquired absence of both cervix and uterus; Z91.14 Patient's other noncompliance with medication regimen; S91.312A Laceration without foreign body, left foot, initial encounter; X58.XXXA Exposure to other specified factors, initial encounter; Y93.9 Activity, unspecified; Y92.9 Unspecified place or not applicable
CPT/HCPCS: 36415; 70030-TC; 71045; 73630; 83605; 83735; 84100; 84443; 85025; 85651; 85730; 86140; 87040; 87077; 87086; 93005; 97161; A4217; A4663; G0378; G0480; J0696; J1940; J3370; J7030; J7060

== ENCOUNTER 2021-06-24 21:13 | Emergency (ER) | payer MEDICARE ==
[~2021-06-24] VITALS: Ht 170.2 cm; Wt 98.9 kg
[~2021-06-24 21:13] MED LIST changes: +ASPI-1420 PO; -CEPH500C2 PO; -DICY10CA13 PO; +MAGN200T5 PO; -ONDA4TAB11 PO; +SULF1TAB47 PO; +VITAMIN D 5000 UNITS PO
--- NOTE | 2021-06-24 22:54 | NUR ---
pt in via w/c assisted to [place] by two person. pt c/o general weakness, denies cp or dizziness. pt a/o able to speak in complete sentences.
--- NOTE | 2021-06-24 23:14 | NUR ---
Dr. Carvalho made aware that lab is unable to draw labs on pt, very difficult stick.
[2021-06-25] MEDS ORDERED: HYDROCODONE/APAP 10-325 MG TABLET PO ONE ×2 (00:15→10:45)
[2021-06-25] MEDS ORDERED: ONDANSETRON ODT 4 MG TAB.RAPDIS SL ONE (00:15)
[2021-06-25] MEDS ORDERED: HYDROCODONE/APAP 10-325 MG TABLET ONE ×2 (00:27→11:17)
[2021-06-25] MEDS ORDERED: ONDANSETRON ODT 4 MG TAB.RAPDIS ONE (00:27)
[2021-06-25 00:37] LABS: ALANINE AMINOTRANSFERASE 22 U/L (14-59); ALKALINE PHOSPHATASE 80 U/L (50-136); ASPARTATE AMINOTRANSFERASE 12 U/L (15-37); BILIRUBIN,TOTAL 0.3 mg/dL (0.2-1.0); CARBON DIOXIDE 31 mmol/L (21-32); CHLORIDE 102 mmol/L (98-107); CREATININE 0.9 mg/dL (0.6-1.3); GLUCOSE 96 mg/dL (74-106); POTASSIUM 4.3 mmol/L (3.5-5.1); TOTAL PROTEIN, SERUM 7.1 g/dL (6.4-8.2); UREA NITROGEN, BLOOD 21 mg/dL (7-18)
[2021-06-25 00:41] LABS: HEMATOCRIT 40.8 % (31.2-41.9); MEAN CORPUSCULAR HEMOGLOBIN 30.8 uug (24.7-32.8); MEAN CORPUSCULAR VOLUME 92.1 fL (75.5-95.3); PLATELET COUNT (AUTO) 252 K/uL (179-408)
[2021-06-25 00:47] LABS: NEUTROPHILS % (MANUAL) 0 % (42-75)
[2021-06-25 00:48] LABS: BILIRUBIN,DIRECT < 0.1 mg/dL (0.0-0.2)
--- NOTE | 2021-06-25 00:49 | NUR ---
call placed to [facility] for admission.
--- NOTE | 2021-06-25 02:29 | NUR ---
pt resting comfortably denies pain.
--- NOTE | 2021-06-25 08:30 | NUR ---
Gave pt breakfast tray.
--- NOTE | 2021-06-25 08:46 | NUR ---
Called CM Parada. States she will be here in under 1 hour.
[2021-06-25] MEDS ORDERED: HYDR-4209 PO (11:40)
--- NOTE | 2021-06-25 13:13 | NUR ---
Removed IV intact, site okay, bandaged. Gave pt RX and d/c instructions, pt verbalized understanding.
[2021-06-25 13:15] VITALS: BP 103/68
== END 2021-06-25 12:45 | disposition home or self-care (01) ==
LOC: ER 21:15
DX: I89.0 Lymphedema, not elsewhere classified (principal); M79.605 Pain in left leg; M79.604 Pain in right leg; R26.2 Difficulty in walking, not elsewhere classified; Z82.49 Family history of ischemic heart disease and other diseases of the circulatory system; F32.9 Major depressive disorder, single episode, unspecified; Z85.89 Personal history of malignant neoplasm of other organs and systems; Z90.710 Acquired absence of both cervix and uterus; Z79.01 Long term (current) use of anticoagulants; Z20.822 Contact with and (suspected) exposure to COVID-19
CPT/HCPCS: 36415; 70030-TC; 85025; 93005; A4663; Q0162

== ENCOUNTER 2021-10-10 07:29 | Inpatient (IN) | payer MEDICARE ==
[~2021-10-10] VITALS: Ht 162.6 cm; Wt 97.2 kg
[~2021-10-10 07:29] MED LIST changes: +HYDR-4209 PO
--- NOTE | 2021-10-10 07:40 | NUR ---
Assisted pt. from her car to [facility] with help of secutiry staff, patient heavily soiled and in disarray. covered from head to toe with stool. patient in and cleaned from head to toe, non-compliant with nursing care, and argumentative at times, screaming and yelling to staff.
--- NOTE | 2021-10-10 08:00 | NUR ---
Patient seen by physician.
--- NOTE | 2021-10-10 08:10 | NUR ---
security systems installer beought the car keys and placed it in the pt's bag.
[2021-10-10 08:12] LABS: HEMATOCRIT 39.1 % (31.2-41.9); MEAN CORPUSCULAR VOLUME 91.4 fL (75.5-95.3); PLATELET COUNT (AUTO) 199 K/uL (179-408)
[2021-10-10 08:14] LABS: CARBON DIOXIDE 29 mmol/L (21-32); CHLORIDE 101 mmol/L (98-107); CREATININE 0.8 mg/dL (0.6-1.3); GLUCOSE 153 mg/dL (74-106); POTASSIUM 4.2 mmol/L (3.5-5.1); UREA NITROGEN, BLOOD 18 mg/dL (7-18)
[2021-10-10] MEDS ORDERED: FURO-152 PO (08:20)
--- NOTE | 2021-10-10 08:20 | NUR ---
pt says that is on only lasix, po, unknown dose, but she ran out for couple of days.
[2021-10-10 08:26] LABS: ALANINE AMINOTRANSFERASE 20 U/L (14-59); ALKALINE PHOSPHATASE 74 U/L (50-136); ASPARTATE AMINOTRANSFERASE 9 U/L (15-37); BILIRUBIN,DIRECT 0.2 mg/dL (0.0-0.2); BILIRUBIN,TOTAL 0.5 mg/dL (0.2-1.0); TOTAL PROTEIN, SERUM 7.8 g/dL (6.4-8.2)
--- NOTE | 2021-10-10 09:35 | NUR ---
ADMITTED A 71 YO FEMALE WITH ADM DX OF EXACERBATION CHF AWAKE ALERT AND ORIENTED X3, DENIES SOB BUT C/O PAIN ON BOTH LOWER LEGS. ROUTINE ADMISSION ASSESSMENT INITIATED, DR VELASQUEZ NOTIFIED OF ADMISSION ORDERS
[2021-10-10 10:00] VITALS: BP 128/52
--- NOTE | 2021-10-10 10:08 | NUR ---
Bedside report given to Juan M kwok. All systems covered. Pt. got situated in bed.
--- NOTE | 2021-10-10 10:10 | NUR ---
As per security guards dispatcher staff statement vebalized to dry pan charger. Sepi they put a set of pt's car keys in her bag. Bag which is full of dirty stool and garbage, bag not open and receiving nurse on the floor notified.
[2021-10-10] MEDS ORDERED: ONDANSETRON 4 MG/2 ML VIAL IV PRN (11:45)
[2021-10-10] MEDS ORDERED: LORAZEPAM 2 MG/1 ML VIAL IV PRN (11:45)
[2021-10-10] MEDS ORDERED: TEMAZEPAM 15 MG CAPSULE PO PRN (11:45)
[2021-10-10] MEDS: ACETAMINOPHEN 325 MG TABLET PO PRN (12:08)
--- NOTE | 2021-10-10 14:05 | NUR ---
WOUND CARE CONSULT: PT PRESENTS WITH SEVERE RASH TO BUTTOCKS WITH OPEN SKIN, SWELLING TO LOWER EXTREMITIES AND WOUNDS TO LEFT FOOT, PRESENT ON ADMISSION.PT REFUSED FULL SKIN ASSESSMENT. DR YU TAVARES AND DR CHACON CALLED FOR SURGICAL AND DPM CONSULTS. RECOMMENDATIONS MADE FOR SKIN PROTECTION. DISCUSSED WITH NURSING STAFF. MD IN AGREEMENT WITH PLAN OF CARE. PT YELLING AND VERBALLY ABUSIVE AT TIMES.
[2021-10-10] MEDS ORDERED: REMEDY ESSENTIAL ZINC PASTE 113 GM TOP PRN (14:15)
[2021-10-10 16:00] VITALS: BP_SYST 86; BP_SYST 90; BP_DIAS 40; BP_DIAS 55
[2021-10-10 17:00] VITALS: BP 116/64
[2021-10-10] MEDS: APIXABAN 5 MG TABLET PO SCH (17:23)
[2021-10-10] MEDS: CEFTRIAXONE 1 G in IV DEXTROSE 5% 50 ML IV SCH (17:28)
--- NOTE | 2021-10-10 18:00 | NUR ---
STARTED ON ROCEPHIN IV WILL MONITOR FOR REACTION, PATIENT RESTING COMFORTABLY GOOD RELIEF OF PAIN FROM TYLENOL SR/ST ON MONITOR
[2021-10-10 20:00] VITALS: BP 115/67
[2021-10-10] MEDS ORDERED: DOCUSATE SODIUM 250 MG CAPSULE PO SCH (21:00)
[2021-10-10] MEDS: DOCUSATE SODIUM 100 MG CAPSULE PO SCH (21:12)
[2021-10-10] MEDS: CLOTRIMAZOLE/BETAMET DIPROP CREAM 15 GM TUBE TOP SCH (21:13)
[2021-10-10] MEDS: REMEDY ESSENTIAL ZINC PASTE 113 GM TOP SCH (21:13)
[2021-10-10] MEDS: HYDROCODONE/APAP 5-325MG TABLET PO PRN (21:51)
[2021-10-11] VITALS: BP 111/66
[2021-10-11 04:00] VITALS: BP 118/65
[2021-10-11 05:51] LABS: HEMATOCRIT 34.4 % (31.2-41.9); MEAN CORPUSCULAR HEMOGLOBIN 30.5 uug (24.7-32.8); MEAN CORPUSCULAR VOLUME 91.5 fL (75.5-95.3); PLATELET COUNT (AUTO) 161 K/uL (179-408)
[2021-10-11 06:05] LABS: NEUTROPHILS % (MANUAL) 0 % (42-75)
[2021-10-11] MEDS: PANTOPRAZOLE SODIUM 40 MG TABLET.DR PO SCH (06:09)
[2021-10-11 06:46] LABS: BILIRUBIN,TOTAL 0.3 mg/dL (0.2-1.0); CREATININE 0.9 mg/dL (0.6-1.3); MAGNESIUM 1.6 mg/dL (1.8-2.4); PHOSPHOROUS 3.6 mg/dL (2.5-4.9); POTASSIUM 4.4 mmol/L (3.5-5.1); TOTAL PROTEIN, SERUM 6.2 g/dL (6.4-8.2)
[2021-10-11 07:08] LABS: THYROID STIMULATING HORMONE 3.449 mIU/mL (0.358-3.740)
--- NOTE | 2021-10-11 08:00 | NUR ---
RESTING COMFORTABLY IN BED ABLE TO MAKE NEEDS KNOWN C/O PAIN BLE MEDICATED WITH TYLENOL. OBSERVED
[2021-10-11] MEDS ORDERED: MAGNESIUM SULFATE/D5W 100 ML IV SCH (08:45)
[2021-10-11] MEDS ORDERED: ASPIRIN EC 81 MG TABLET.DR PO SCH (09:00)
[2021-10-11] MEDS: REMEDY ESSENTIAL ZINC PASTE 113 GM TOP SCH ×2 (09:03→21:19)
[2021-10-11] MEDS: FUROSEMIDE 20 MG TABLET PO SCH (09:03)
[2021-10-11] MEDS: CLOTRIMAZOLE/BETAMET DIPROP CREAM 15 GM TUBE TOP SCH ×2 (09:03→21:19)
[2021-10-11] MEDS: APIXABAN 5 MG TABLET PO SCH ×2 (09:04→17:06)
[2021-10-11] MEDS: ACETAMINOPHEN 325 MG TABLET PO PRN ×3 (09:19→19:48)
[2021-10-11] MEDS ORDERED: LORAZEPAM 1 MG TABLET PO PRN (09:45)
--- NOTE | 2021-10-11 10:00 | NUR ---
SEEN BY DR TRACY FOR PSYCH CONSULT AND TX, SEE NOTES
--- NOTE | 2021-10-11 11:24 | NUR ---
PATIENT RESTING COMFORTABLY IN BED, REFUSED MORNING CARE FOR NOW "I WANT TO REST FOR NOW" SR ON MONITOR
[2021-10-11 11:40] VITALS: BP 123/57
[2021-10-11 15:50] VITALS: BP 116/58
--- NOTE | 2021-10-11 15:59 | NUR ---
COMPLETE BED BATH GIVEN, WOUND TX DONE ORDERED, PATIENT TOLERATED WELL
[2021-10-11] MEDS: CEFTRIAXONE 1 G in IV DEXTROSE 5% 50 ML IV SCH (16:55)
[2021-10-11] MEDS: PROTEIN SUPPLEMENT (PROSTAT) 30 ML LIQUID PO SCH (17:07)
[2021-10-11 18:21] LABS: *BILIRUBIN,URIN NEGATIVE (NEGATIVE); *BLOOD, URINE NEGATIVE (NEGATIVE); *CLARITY,URINE CLEAR (CLEAR); *COLOR,URINE YELLOW (YELLOW); *KETONES,URINE NEGATIVE (NEGATIVE); *UROBILINOGEN,URINE 0.2 E.U./dl (NORMAL); LEUKOCYTE ESTERASE ,URINE NEGATIVE (NEGATIVE); NITRITE, URINE NEGATIVE (NEGATIVE); UGLUCOSE NEGATIVE (NEGATIVE)
[2021-10-11 20:00] VITALS: BP 104/52
[2021-10-11] MEDS: ATORVASTATIN 10 MG TABLET PO SCH (21:13)
[2021-10-11] MEDS: DOCUSATE SODIUM 100 MG CAPSULE PO SCH (21:13)
[2021-10-12 00:15] VITALS: BP 136/74
[2021-10-12 04:00] VITALS: BP 130/73
--- NOTE | 2021-10-12 06:01 | NUR ---
Patient slept intermittently. She is anxious and occasionally screaming at staff. Polo to meet needs and patient becomes cooperative. NO SOB or respiratory distress. Still noted with non pitting edema to BLE, c/o pain to left knee, refuses to take [place] due to risk of constipation. Tylenol provided with help. Also provided ice pack and warm pack. Is incontinent, Purewik in place with suctioning yellow urine. Safety measures continued, call light within reach.
[2021-10-12] MEDS: PANTOPRAZOLE SODIUM 40 MG TABLET.DR PO SCH (06:40)
--- NOTE | 2021-10-12 07:56 | NUR ---
Alert, oriented x 4, report of pain on the knee. Will give Tylenol
[2021-10-12] MEDS: FUROSEMIDE 20 MG TABLET PO SCH (08:07)
[2021-10-12] MEDS: ACETAMINOPHEN 325 MG TABLET PO PRN ×2 (08:09→18:01)
[2021-10-12] MEDS: AMMONIUM LACTATE 12% LOTION 225 GM BOTTLE TP SCH (08:09)
[2021-10-12] MEDS: APIXABAN 5 MG TABLET PO SCH ×2 (08:09→18:00)
[2021-10-12] MEDS: PROTEIN SUPPLEMENT (PROSTAT) 30 ML LIQUID PO SCH ×2 (08:12→17:00)
[2021-10-12] MEDS: REMEDY ESSENTIAL ZINC PASTE 113 GM TOP SCH ×2 (08:14→20:36)
[2021-10-12] MEDS: CLOTRIMAZOLE/BETAMET DIPROP CREAM 15 GM TUBE TOP SCH ×2 (08:15→20:36)
[2021-10-12 11:14] VITALS: BP 110/51
[2021-10-12] MEDS: HYDROCODONE/APAP 5-325MG TABLET PO PRN (12:00)
--- NOTE | 2021-10-12 12:00 | NUR ---
Tylenol not effective, [place] was given 1 tab PO for left knee pain. Participated with PT hank after several attempts. Able to stand at edge of bed.
--- NOTE | 2021-10-12 15:00 | NUR ---
CM at bedside discussing about SNF placement, patient anxious and crying. Recommended Ativan but refused. Redirected. Still refuse skin care at this time.
[2021-10-12 15:30] VITALS: BP 103/43
--- NOTE | 2021-10-12 16:08 | NUR ---
Clinical Social Work Note: Pt is alert and oriented x4. Pt stated [place] [address] [address]. Pt reported she has her cousins support via telephone Yaw ([phone]) who lives in [place]. pt stated she lives alone and she can independently continue alone, however she would appreciate home health resources upon discharge in the event that she requires further care at home. Pt reported she does not have additional family contact that can help her. Pt appeared agitated with the staff due to pt stating her belongings were taken to a safe without notifying her. Pt reported her left leg does not move well and she is trying to adjust to that. Pt denied living in her car to who had received this report from nursing and protective services case worker. Pt is cooperative with care and appeared guarded towards discussing too many personal questions. Pt appeared frustrated overall and refused to discuss further details regarding her admission. will continue to work with pt, family and MD to ensure a safe and proper discharge plan.
--- NOTE | 2021-10-12 16:30 | NUR ---
Refused air mattress. Skin care as ordered applied. Refused bed bath and repositioning.
[2021-10-12] MEDS: CEFTRIAXONE 1 G in IV DEXTROSE 5% 50 ML IV SCH (17:59)
--- NOTE | 2021-10-12 18:23 | NUR ---
TYLENOL GIVEN FOR PAIN. AFEBRILE.
[2021-10-12] MEDS: DOCUSATE SODIUM 100 MG CAPSULE PO SCH (20:32)
[2021-10-12] MEDS: ATORVASTATIN 10 MG TABLET PO SCH (20:32)
[2021-10-12 20:45] VITALS: BP 111/53
[2021-10-13 04:00] VITALS: BP 126/49
--- NOTE | 2021-10-13 05:28 | NUR ---
Pt in bed resting. Restless and yelling at times, has to be redirected. Denies SOB or chest pain. Able to make needs known. IV site intact. Will endorse to day shift.
[2021-10-13] MEDS: PANTOPRAZOLE SODIUM 40 MG TABLET.DR PO SCH (06:19)
[2021-10-13 06:33] LABS: HEMATOCRIT 37.1 % (31.2-41.9); MEAN CORPUSCULAR HEMOGLOBIN 29.7 uug (24.7-32.8); MEAN CORPUSCULAR VOLUME 90.6 fL (75.5-95.3); PLATELET COUNT (AUTO) 195 K/uL (179-408)
[2021-10-13 06:41] LABS: CREATININE 0.8 mg/dL (0.6-1.3); MAGNESIUM 1.8 mg/dL (1.8-2.4); PHOSPHOROUS 3.5 mg/dL (2.5-4.9); POTASSIUM 4.2 mmol/L (3.5-5.1)
[2021-10-13] MEDS: APIXABAN 5 MG TABLET PO SCH ×2 (09:15→16:56)
[2021-10-13] MEDS: FUROSEMIDE 20 MG TABLET PO SCH (09:15)
[2021-10-13] MEDS: PROTEIN SUPPLEMENT (PROSTAT) 30 ML LIQUID PO SCH ×2 (09:15→16:57)
[2021-10-13] MEDS: REMEDY ESSENTIAL ZINC PASTE 113 GM TOP SCH ×2 (09:16→20:49)
[2021-10-13] MEDS: AMMONIUM LACTATE 12% LOTION 225 GM BOTTLE TP SCH (09:17)
[2021-10-13] MEDS: CLOTRIMAZOLE/BETAMET DIPROP CREAM 15 GM TUBE TOP SCH ×2 (09:17→20:49)
--- NOTE | 2021-10-13 10:15 | NUR ---
Received patient resting in bed Alert, oriented x 4, no SOB or respiratory distress noted at room air. No c/o of pain or any acute distress noted incontinent of bowel on pure wick external catheter draining well out put 1000 ml . on PT eval . safety measures in place bed in low position, call light and all most need it items within reach will continue to monitor closely
[2021-10-13 12:05] VITALS: BP 125/66
[2021-10-13] MEDS: ACETAMINOPHEN 325 MG TABLET PO PRN (12:49)
[2021-10-13 16:16] VITALS: BP 132/68
[2021-10-13] MEDS: CEFTRIAXONE 1 G in IV DEXTROSE 5% 50 ML IV SCH (16:56)
[2021-10-13 20:00] VITALS: BP 110/64
[2021-10-13] MEDS: ATORVASTATIN 10 MG TABLET PO SCH (20:47)
[2021-10-13] MEDS: DOCUSATE SODIUM 100 MG CAPSULE PO SCH (20:47)
[2021-10-14] MEDS: ACETAMINOPHEN 325 MG TABLET PO PRN ×2 (03:34→09:01)
[2021-10-14 04:00] VITALS: BP 129/70
--- NOTE | 2021-10-14 05:25 | NUR ---
Slept throughout the night. Anxious at times. Denies pain or SOB. Able to make needs known. IV site intact. Safety maintained throughout shift. Will endorse to day shift.
[2021-10-14] MEDS: PANTOPRAZOLE SODIUM 40 MG TABLET.DR PO SCH (06:23)
--- NOTE | 2021-10-14 08:00 | NUR ---
IN BED RESTING COMFORTABLY, DENIES PAIN OR SOB DC PLAN INITIATED. SEE SOCIAL WORK LECTURER NOTES
[2021-10-14] MEDS: FUROSEMIDE 20 MG TABLET PO SCH (09:01)
[2021-10-14] MEDS: APIXABAN 5 MG TABLET PO SCH ×2 (09:01→16:40)
[2021-10-14] MEDS: PROTEIN SUPPLEMENT (PROSTAT) 30 ML LIQUID PO SCH ×2 (09:02→16:39)
[2021-10-14] MEDS: CLOTRIMAZOLE/BETAMET DIPROP CREAM 15 GM TUBE TOP SCH ×2 (09:02→21:34)
[2021-10-14] MEDS: REMEDY ESSENTIAL ZINC PASTE 113 GM TOP SCH ×2 (09:03→21:34)
[2021-10-14] MEDS: AMMONIUM LACTATE 12% LOTION 225 GM BOTTLE TP SCH (09:03)
[2021-10-14 11:11] VITALS: BP 106/50
--- NOTE | 2021-10-14 12:00 | NUR ---
NO ACUTE CHANGE FROM MORNING ASSESSMENT
[2021-10-14 15:17] VITALS: BP 122/59
--- NOTE | 2021-10-14 15:53 | NUR ---
PATIENT REMAINS VERBALLY COMBATIVE WITH CARE 'I WANT TO GO AMA TO GET MONEY' CONTINUE TO REFUSE PLACEMENT HOSPITALIST AWARE. PERIANAL REDNESS AND WOUND HEALING BETTER WITH TX. CONTINUE WITH PLAN OF CARE
[2021-10-14] MEDS: CEFTRIAXONE 1 G in IV DEXTROSE 5% 50 ML IV SCH (16:40)
--- NOTE | 2021-10-14 18:30 | NUR ---
CRISIS TEAM NOTIFIED BY NURSING DRY JANITOR, TEAM WILL COME AND EVAL PATIENT TODAY
[2021-10-14] MEDS: DOCUSATE SODIUM 100 MG CAPSULE PO SCH (20:22)
[2021-10-14] MEDS: ATORVASTATIN 10 MG TABLET PO SCH (20:26)
[2021-10-14 20:54] VITALS: BP 136/72
[2021-10-14] MEDS ORDERED: LORAZEPAM 2 MG/1 ML VIAL IV PRN (21:00)
[2021-10-14] MEDS ORDERED: OLANZAPINE 10 MG VIAL IM PRN (21:00)
--- NOTE | 2021-10-14 21:15 | NUR ---
Patient in bed continue to scream loudly.Unable to redirect. Patient seen by team crisis and placed on 5150.Patients get more agitated and restless.Trying to get out bed. notified with new order received and carried out. Call light with in reach. Will continue to monitor.
[2021-10-15] MEDS: ACETAMINOPHEN 325 MG TABLET PO PRN (01:05)
[2021-10-15 04:21] VITALS: BP 114/54
--- NOTE | 2021-10-15 05:12 | NUR ---
Patient slept intermittently.NO acute distress noted. On RA.Patient pulled ouT IV line. Refused IV insertion.Patient calm at this time.Able to follow simple commands. Incontinent to both B and B.Pericare and wound care rendered.Tolerated well. Call light with in reach.
[2021-10-15] MEDS: PANTOPRAZOLE SODIUM 40 MG TABLET.DR PO SCH (06:22)
--- NOTE | 2021-10-15 07:16 | NUR ---
Patient awake started screaming , extremely agitated and combative .Stated she wants wheelchair for her to go home.Unable to redirect patient. Zyprexa IM given. Patient transferred to MHU for gravely disabled. Report given to Marta.JARVIS
--- NOTE | 2021-10-15 07:35 | NUR ---
Patient heard yelling and screaming, kicking staff, demanding for wheelchair to go home. Unable to be redirected. Per charge nurse Mariel, patient supposed to be transferred to U last night but there was no admitting nurse. Dr. Adan ordered for transfer first thing this morning. Report given by fast food shift supervisor RN. Transferred via bed stretcher. Addendum: 10/15/21 at 0808 by RENEE ALVES RN Patient also refused skin checks verbally combative.
[2021-10-15] MEDS ORDERED: PROT30LI PO (08:20)
[2021-10-15] MEDS ORDERED: ATOR10TA PO (08:20)
[2021-10-15] MEDS ORDERED: PANT40TA49 PO (08:20)
[2021-10-15] MEDS ORDERED: AMMO225L7 TP (08:20)
[2021-10-15] MEDS ORDERED: TEMA15CA PO (08:20)
[2021-10-15] MEDS ORDERED: DOCU250C14 PO (08:20)
[2021-10-15] MEDS ORDERED: CLOT15CR36 TOP (08:20)
[2021-10-15] MEDS ORDERED: ACET325T53 PO (08:20)
[2021-10-15] MEDS ORDERED: OLAN10VI IM (08:20)
[2021-10-15] MEDS ORDERED: FURO20TA4 PO (08:20)
[2021-10-16] MEDS ORDERED: FURO40TA5 PO (13:01)
== END 2021-10-15 07:35 | DRG 606 ==
LOC: ER 07:29 → TELE3 09:07 → MEDSURG3 09:46 → TELE3 15:30 → MEDSURG3 10-12 08:10
PROVIDERS: ADMIT Internal Medicine; ATTEND Internal Medicine
DX: I89.0 Lymphedema, not elsewhere classified (principal); E43 Unspecified severe protein-calorie malnutrition; I50.33 Acute on chronic diastolic (congestive) heart failure; D68.69 Other thrombophilia; I87.312 Chronic venous hypertension (idiopathic) with ulcer of left lower extremity; I73.9 Peripheral vascular disease, unspecified; I48.0 Paroxysmal atrial fibrillation; L85.3 Xerosis cutis; Z90.710 Acquired absence of both cervix and uterus; Z79.01 Long term (current) use of anticoagulants; Z85.42 Personal history of malignant neoplasm of other parts of uterus; Z91.19 Patient's noncompliance with other medical treatment and regimen; Z59.02 Unsheltered homelessness; I11.0 Hypertensive heart disease with heart failure; E66.01 Morbid (severe) obesity due to excess calories; F43.22 Adjustment disorder with anxiety; B36.9 Superficial mycosis, unspecified; D72.829 Elevated white blood cell count, unspecified; R62.7 Adult failure to thrive; Z68.36 Body mass index [BMI] 36.0-36.9, adult; L97.529 Non-pressure chronic ulcer of other part of left foot with unspecified severity; Z92.21 Personal history of antineoplastic chemotherapy; Y84.2 Radiological procedure and radiotherapy as the cause of abnormal reaction of the patient, or of later complication, without mention of misadventure at the time of the procedure; Y92.89 Other specified places as the place of occurrence of the external cause; R21 Rash and other nonspecific skin eruption; F41.1 Generalized anxiety disorder; I08.0 Rheumatic disorders of both mitral and aortic valves; R91.8 Other nonspecific abnormal finding of lung field; Z74.09 Other reduced mobility; Z20.822 Contact with and (suspected) exposure to COVID-19
CPT/HCPCS: 36415; 70030-TC; 71045; 83605; 83735; 84100; 84443; 84484; 85025; 85730; 87040; 87086; 93005; 93307; 97161; A4663; A6209; C1758; G0378; J0696; J2060; J2358; J3475

== ENCOUNTER 2021-10-15 07:40 | Inpatient (IN) | payer MEDICARE ==
[~2021-10-15] VITALS: Ht 167.6 cm; Wt 95.7 kg
[~2021-10-15 07:40] MED LIST changes: +FURO-152 PO; -SULF1TAB47 PO
[2021-10-15] MEDS ORDERED: FURO20TA4 PO (08:20)
[2021-10-15] MEDS ORDERED: OLAN10VI IM (08:20)
[2021-10-15] MEDS ORDERED: CLOT15CR36 TOP (08:20)
[2021-10-15] MEDS ORDERED: DOCU250C14 PO (08:20)
[2021-10-15] MEDS ORDERED: PANT40TA49 PO (08:20)
[2021-10-15] MEDS ORDERED: PROT30LI PO (08:20)
[2021-10-15] MEDS ORDERED: AMMO225L7 TP (08:20)
[2021-10-15] MEDS ORDERED: ATOR10TA PO (08:20)
[2021-10-15] MEDS ORDERED: ACET325T53 PO (08:20)
[2021-10-15] MEDS ORDERED: TEMA15CA PO (08:20)
--- NOTE | 2021-10-15 09:00 | NUR ---
Admitted a 71 years old female from [facility] Surg floor [facility] with history of Endometrial cancer, cellulitis, HTN, edema in lower extremities. Patient has no history of Psychosis NOS. Patient is on 5150 status for GD. Patient arrived in a stretcher by PANTOGRAPH SETTER around 07:30 am. Initial report given by Zee DELA CRUZ. On admission patient was cooperative to physical assessment and vital signs. Breathing even and unlabored. Patient is bladder and bowel incontinent. Skin body assessment revealed redness on sacrum, buttocks, and perineal area, abrasion in the left ankle. Vital signs within normal limits. Patient presents lower extremities weakness, unsteady gait, unable to ambulate. On interview patient appeared alert, oriented to person and place, redirectable. Patient denies any suicidal or homicidal ideations nor any hallucinations or delusions. Patient refused signing and consenting to all admission documents. Patient was offered brief orientation to unit rules and policies and given a copy of patient's rights handbook. Patient belongings were accounted and contrabands were removed. Psychiatrist Darvin and Power Tool Repairer Loco were informed and orders has been carried out. Patient is currently free from pain or any discomfort. Bed alarm, side rails up, wheel locks on, safety checks every 15 minutes implemented.
[2021-10-15] MEDS ORDERED: TEMAZEPAM 7.5 MG CAPSULE PO PRN (09:15)
[2021-10-15] MEDS ORDERED: MAGNESIUM HYDROXIDE 30 ML LIQUID UDC PO PRN (09:15)
[2021-10-15] MEDS ORDERED: MAG HYDROX/AL HYDROX/SIMETH 30 ML LIQUID UDC PO PRN (09:15)
[2021-10-15] MEDS ORDERED: ACETAMINOPHEN 325 MG TABLET-SA PATIENTS-PAIN ONLY PO PRN (10:00)
[2021-10-15] MEDS ORDERED: OLANZAPINE 10 MG VIAL IM PRN (10:00)
[2021-10-15] MEDS: ASPIRIN EC 81 MG TABLET.DR PO SCH (10:15)
[2021-10-15] MEDS: ACETAMINOPHEN 325 MG TABLET PO PRN ×2 (12:03→23:24)
--- NOTE | 2021-10-15 12:15 | NUR ---
Patient is given Tylenol 650 mg at 12:06 for knee pain, effective.
[2021-10-15] MEDS ORDERED: AMMONIUM LACTATE 12% LOTION 225 GM BOTTLE TP SCH (14:00)
--- NOTE | 2021-10-15 14:24 | NUR ---
More detailed skin assessment showed left ankle wound with serosanguineous drainage, and redness and skin tear buttocks. Wound consult ordered.
[2021-10-15 16:07] VITALS: BP 118/77
[2021-10-15] MEDS: APIXABAN 5 MG TABLET PO SCH (16:59)
[2021-10-15] MEDS: PROTEIN SUPPLEMENT (PROSTAT) 30 ML LIQUID PO SCH (17:00)
[2021-10-15] MEDS ORDERED: Medication Not On Formulary EA (Protein Supplement (Prosource) 30 ML) PO SCH (17:00)
[2021-10-15 20:00] VITALS: BP 132/73
[2021-10-15] MEDS: ATORVASTATIN 10 MG TABLET PO SCH (20:24)
[2021-10-15] MEDS: DOCUSATE SODIUM 100 MG CAPSULE PO SCH (20:24)
[2021-10-15] MEDS: DIVALPROEX SPRINKLE 125 MG CAP.SPRINK PO SCH (20:24)
[2021-10-15] MEDS: OLANZAPINE 5 MG TABLET PO SCH (20:24)
[2021-10-15] MEDS: CLOTRIMAZOLE/BETAMET DIPROP CREAM 15 GM TUBE TOP SCH (20:26)
[2021-10-15] MEDS: TEMAZEPAM 15 MG CAPSULE PO PRN (23:24)
--- NOTE | 2021-10-16 03:43 | NUR ---
Received the patient in a micah chair ,in the day room. The patient is needy, demanding and full of complaints. Very little insight to her situation and abilities. This writer technical publications took patient to the shower. 3 staff were needed to assist the patient with standing and turning to get in the shower chair. While in the shower, the patient had a large BM all over the floor. Minimal help was provided by the patient with her ADLS. This patient is delusional and believes she can " Leave here, get into my car and drive to my condo". A large excoriated area noted on her buttocks. Ointment applied per order. This writer technical publications turned and repositioned patient frequently during the night. The patient needs encouragement when taking medications and compiling with care. Safety stratiges are in place at this time.
[2021-10-16] MEDS: PANTOPRAZOLE SODIUM 40 MG TABLET.DR PO SCH (06:02)
[2021-10-16 07:43] VITALS: BP 132/76
[2021-10-16] MEDS: LORAZEPAM 0.5 MG TABLET PO PRN (08:55)
[2021-10-16] MEDS: ASPIRIN EC 81 MG TABLET.DR PO SCH (08:59)
[2021-10-16] MEDS: ACETAMINOPHEN 325 MG TABLET PO PRN (08:59)
[2021-10-16] MEDS: DIVALPROEX SPRINKLE 125 MG CAP.SPRINK PO SCH ×2 (08:59→21:29)
[2021-10-16] MEDS ORDERED: ASPIRIN EC 81 MG TABLET.DR PO SCH (09:00)
[2021-10-16] MEDS ORDERED: FUROSEMIDE 20 MG TABLET PO SCH (09:00)
[2021-10-16] MEDS: APIXABAN 5 MG TABLET PO SCH ×2 (09:00→16:34)
[2021-10-16] MEDS: AMMONIUM LACTATE 12% LOTION 225 GM BOTTLE TP SCH (09:00)
[2021-10-16] MEDS: CLOTRIMAZOLE/BETAMET DIPROP CREAM 15 GM TUBE TOP SCH ×2 (09:01→21:45)
[2021-10-16] MEDS: PROTEIN SUPPLEMENT (PROSTAT) 30 ML LIQUID PO SCH ×2 (09:01→16:31)
--- NOTE | 2021-10-16 09:11 | NUR ---
Social Work Initial Note and Discharge Plan Patient was admitted to our unit on a 5150 for grave disability. She has been living in her car and using it a toilet. Patient came in with feces all over her buttocks and skin excoriation. she admits she cannot move her legs and could not leave her car. Patient signed out of [facility] on 10/05/21. She has very poor insight and thinks she can care for herself. she tlaks of a condo. in [place] but this is reportedly not fit for her to live in and has no furniture or running water. Patient has been unable to set up caregivers or provide for her selfcare. iron worker foreman will try to encourage placement and discuss options with Dr Boston once patient is more stable.
[2021-10-16] MEDS ORDERED: FURO40TA5 PO (13:01)
--- NOTE | 2021-10-16 15:24 | NUR ---
GPS: Nursing Notes: Thought disorder: Patient is awake and responding to her name, poor impulse control, overly demanding, needy gets easily irritable when her demands are not met immediately, constantly shouting "NURSE....NURSE....", argumentative, anxious affect, attention seeking behavior, asked for the nurse, but she does not know what she wants , believes that she is not medically clear, but she came from the Med. Surg. Department, unable to formulate a viable plan for self care, unable to ambulate with Physical therapy, setting limits, but believes that the staff is against her, continue with treatment plan.
[2021-10-16 17:11] VITALS: BP 131/72
[2021-10-16 20:00] VITALS: BP 124/64
[2021-10-16] MEDS: TEMAZEPAM 15 MG CAPSULE PO PRN (21:27)
[2021-10-16] MEDS: OLANZAPINE 5 MG TABLET PO SCH (21:28)
[2021-10-16] MEDS: DOCUSATE SODIUM 100 MG CAPSULE PO SCH (21:28)
[2021-10-16] MEDS: ATORVASTATIN 10 MG TABLET PO SCH (21:29)
[2021-10-17] MEDS: PANTOPRAZOLE SODIUM 40 MG TABLET.DR PO SCH (06:20)
[2021-10-17] MEDS: ACETAMINOPHEN 325 MG TABLET PO PRN ×2 (06:20→22:38)
[2021-10-17 07:30] VITALS: BP 145/86
[2021-10-17] MEDS: DIVALPROEX SPRINKLE 125 MG CAP.SPRINK PO SCH ×3 (08:13→21:17)
[2021-10-17] MEDS: ASPIRIN EC 81 MG TABLET.DR PO SCH (08:13)
[2021-10-17] MEDS: FUROSEMIDE 20 MG TABLET PO SCH (08:13)
[2021-10-17] MEDS: APIXABAN 5 MG TABLET PO SCH ×2 (08:18→17:26)
[2021-10-17] MEDS: PROTEIN SUPPLEMENT (PROSTAT) 30 ML LIQUID PO SCH ×2 (08:25→17:26)
[2021-10-17] MEDS: AMMONIUM LACTATE 12% LOTION 225 GM BOTTLE TP SCH (08:26)
[2021-10-17] MEDS: CADEXOMER IODINE 40 GM TUBE TOP SCH (08:27)
[2021-10-17] MEDS: THERAHONEY GEL 1.5 OZ TUBE TOP SCH (08:27)
[2021-10-17] MEDS: CLOTRIMAZOLE/BETAMET DIPROP CREAM 15 GM TUBE TOP SCH ×2 (08:43→21:00)
[2021-10-17] MEDS: LORAZEPAM 0.5 MG TABLET PO PRN (08:55)
[2021-10-17] MEDS ORDERED: FUROSEMIDE 40 MG TABLET PO SCH (09:00)
--- NOTE | 2021-10-17 09:03 | NUR ---
GPS: Nursing Notes: [id number] Hearing Request: Staff requested [facility] review via [facility] portal, informed patient that she would have a certification review hearing within four days, copy of 9970 given to patient, continue with treatment plan.
--- NOTE | 2021-10-17 09:22 | NUR ---
CM Initial Discharge Plan: Patient is currently homeless and has been living in her car. Patient will need placement. Patient has no supportive contact at this time. CM will work with the MD and treatment team to help coordinate appropriate discharge.
--- NOTE | 2021-10-17 09:22 | NUR ---
SNF Referral: SW sent clinicals to [facility] to Johnny Lopez ([phone]) for placement. SW sent H & P, progress notes, and medication list.
--- NOTE | 2021-10-17 10:17 | NUR ---
WOUND CARE CONSULT: PT PRESENTS WITH RASH AND INCONTINENCE ASSOCIATED OPEN AREAS TO BUTTOCKS AND OPEN WOUND TO LEFT ANKLE AREA, PRESENT ON ADMISSION. RECOMMENDATIONS MADE FOR SKIN PROTECTION. DISCUSSED WITH NURSING STAFF. DEFER TO PODIATRY FOR LOWER EXTREMITY WOUND. MD IN AGREEMENT WITH PLAN OF CARE.
--- NOTE | 2021-10-17 11:27 | NUR ---
SW Admit Source: Patient on hold, admitted a 71 years old female from Med Surg floor [facility] with history of Endometrial cancer, cellulitis, HTN, edema in lower extremities. Patient has no history of Psychosis NOS. Patient is on 5150 status for GD. Patient is living in her care. Patient will need nursing facility. Patient has no supportive Contact.
--- NOTE | 2021-10-17 14:37 | NUR ---
GPS: Nursing Notes: Thought Disorder: Patient is awake and responding to her name, argumentative, overly demanding, needy, attention seeking behavior, constantly calling the nurse, forgetful at times, setting limits, but she got sarcastic with the wound nurse, believes that can take care of herself, stated "I have someone at home that takes care of me...", episode of defecating on the floor, stated "I couldn't make it...", "You can clean it...", unable to formulate a viable plan for self care, continue with treatment plan.
[2021-10-17 15:57] VITALS: BP 99/69
[2021-10-17] MEDS: REMEDY ESSENTIAL ZINC PASTE 113 GM TOP SCH ×2 (16:04→21:00)
[2021-10-17 20:13] VITALS: BP 136/62
[2021-10-17] MEDS: OLANZAPINE 5 MG TABLET PO SCH ×2 (21:00→21:17)
[2021-10-17] MEDS: ATORVASTATIN 10 MG TABLET PO SCH ×2 (21:00→21:17)
[2021-10-17] MEDS: DOCUSATE SODIUM 100 MG CAPSULE PO SCH (21:17)
[2021-10-18] MEDS: PANTOPRAZOLE SODIUM 40 MG TABLET.DR PO SCH (06:28)
[2021-10-18 07:30] VITALS: BP 133/69
[2021-10-18] MEDS: LORAZEPAM 0.5 MG TABLET PO PRN (08:36)
[2021-10-18] MEDS: ASPIRIN EC 81 MG TABLET.DR PO SCH (08:36)
[2021-10-18] MEDS: DIVALPROEX SPRINKLE 125 MG CAP.SPRINK PO SCH ×2 (08:36→20:13)
[2021-10-18] MEDS: FUROSEMIDE 20 MG TABLET PO SCH (08:36)
[2021-10-18] MEDS: APIXABAN 5 MG TABLET PO SCH ×2 (09:02→17:00)
[2021-10-18] MEDS: REMEDY ESSENTIAL ZINC PASTE 113 GM TOP SCH ×2 (09:03→20:13)
[2021-10-18] MEDS: PROTEIN SUPPLEMENT (PROSTAT) 30 ML LIQUID PO SCH (09:03)
[2021-10-18] MEDS: AMMONIUM LACTATE 12% LOTION 225 GM BOTTLE TP SCH (09:04)
[2021-10-18] MEDS: THERAHONEY GEL 1.5 OZ TUBE TOP SCH (09:04)
[2021-10-18] MEDS: CLOTRIMAZOLE/BETAMET DIPROP CREAM 15 GM TUBE TOP SCH ×2 (09:05→20:13)
[2021-10-18] MEDS: CADEXOMER IODINE 40 GM TUBE TOP SCH (09:05)
[2021-10-18] MEDS: OLANZAPINE 2.5 MG TABLET PO SCH (17:00)
--- NOTE | 2021-10-18 18:11 | NUR ---
patient is alert and oriented x4, demanding needy able to wheel self in wheel chair by herself, wound care done to LLE,patient compliant with all medication .paranoia and delusional about her leg cellulitis .encourage to elevate legs with pillows while in bed.will continue close monitoring.
[2021-10-18] MEDS ORDERED: DIVALPROEX SPRINKLE 125 MG CAP.SPRINK ONE (20:01)
[2021-10-18] MEDS: ACETAMINOPHEN 325 MG TABLET PO PRN (20:02)
[2021-10-18] MEDS: DOCUSATE SODIUM 100 MG CAPSULE PO SCH (20:02)
[2021-10-18] MEDS: ATORVASTATIN 10 MG TABLET PO SCH (20:02)
[2021-10-18] MEDS: OLANZAPINE 5 MG TABLET PO SCH (20:02)
[2021-10-18 20:26] VITALS: BP 120/87
--- NOTE | 2021-10-19 04:45 | NUR ---
Patient refused to take the Depakote, the HS dose. This feature writer encouraged and educated the patient on the importance of medication compliance. This patient is argumentative, labile, needy and tries to hypermanage the staff. Most of the time this patient decides to void in a diaper instead of the bathroom. Diana care and skin care provided. Safety Stratiges are in place at this time.
[2021-10-19] MEDS: PANTOPRAZOLE SODIUM 40 MG TABLET.DR PO SCH (06:21)
[2021-10-19 08:31] VITALS: BP 136/54
[2021-10-19] MEDS: OLANZAPINE 2.5 MG TABLET PO SCH ×3 (09:00→17:43)
[2021-10-19] MEDS: DIVALPROEX SPRINKLE 125 MG CAP.SPRINK PO SCH ×3 (09:00→20:52)
[2021-10-19] MEDS: FUROSEMIDE 20 MG TABLET PO SCH (09:22)
[2021-10-19] MEDS: ASPIRIN EC 81 MG TABLET.DR PO SCH (09:22)
[2021-10-19] MEDS: APIXABAN 5 MG TABLET PO SCH ×2 (09:35→17:41)
[2021-10-19] MEDS: REMEDY ESSENTIAL ZINC PASTE 113 GM TOP SCH ×2 (09:36→20:47)
[2021-10-19] MEDS: CADEXOMER IODINE 40 GM TUBE TOP SCH (09:36)
[2021-10-19] MEDS: CLOTRIMAZOLE/BETAMET DIPROP CREAM 15 GM TUBE TOP SCH ×2 (09:36→20:47)
[2021-10-19] MEDS: AMMONIUM LACTATE 12% LOTION 225 GM BOTTLE TP SCH (09:37)
[2021-10-19] MEDS: PROTEIN SUPPLEMENT (PROSTAT) 30 ML LIQUID PO SCH (09:37)
[2021-10-19] MEDS: THERAHONEY GEL 1.5 OZ TUBE TOP SCH (09:37)
--- NOTE | 2021-10-19 11:06 | NUR ---
Gps/Ice Skating Coach- Patient was not compliant with routine am meds. selective with her medications, reviewed each and everyone of her meds., patient stated" I dont want to take any of those meds. not good for my brain"
[2021-10-19 17:35] VITALS: BP 140/71
--- NOTE | 2021-10-19 17:43 | NUR ---
Gps/Die Fitter- Patient decided to take her routine zyprexa 2.5 mg po, claimed she wants to be compliant w/ her meds.Patient was well informed dc. plan for tomorrow, to SNF
[2021-10-19] MEDS: ATORVASTATIN 10 MG TABLET PO SCH (20:46)
[2021-10-19] MEDS: DOCUSATE SODIUM 100 MG CAPSULE PO SCH (20:47)
[2021-10-19] MEDS: OLANZAPINE 5 MG TABLET PO SCH (20:47)
[2021-10-19 21:38] VITALS: BP 141/77
[2021-10-20] MEDS: PANTOPRAZOLE SODIUM 40 MG TABLET.DR PO SCH (06:08)
[2021-10-20 07:30] VITALS: BP 133/53
[2021-10-20] MEDS: APIXABAN 5 MG TABLET PO SCH ×2 (07:49→17:12)
[2021-10-20] MEDS: DIVALPROEX SPRINKLE 125 MG CAP.SPRINK PO SCH ×2 (08:23→20:03)
[2021-10-20] MEDS: FUROSEMIDE 20 MG TABLET PO SCH (08:23)
[2021-10-20] MEDS: OLANZAPINE 2.5 MG TABLET PO SCH ×2 (08:23→17:05)
[2021-10-20] MEDS: CADEXOMER IODINE 40 GM TUBE TOP SCH (08:24)
[2021-10-20] MEDS: AMMONIUM LACTATE 12% LOTION 225 GM BOTTLE TP SCH (08:24)
[2021-10-20] MEDS: CLOTRIMAZOLE/BETAMET DIPROP CREAM 15 GM TUBE TOP SCH ×2 (08:25→20:04)
[2021-10-20] MEDS: REMEDY ESSENTIAL ZINC PASTE 113 GM TOP SCH ×2 (08:27→20:04)
[2021-10-20] MEDS: ASPIRIN EC 81 MG TABLET.DR PO SCH (08:27)
[2021-10-20] MEDS: THERAHONEY GEL 1.5 OZ TUBE TOP SCH (08:33)
[2021-10-20] MEDS: PROTEIN SUPPLEMENT (PROSTAT) 30 ML LIQUID PO SCH (08:34)
--- NOTE | 2021-10-20 11:00 | NUR ---
Gps/Lead Pressman [employer] -DC plan cancelled per Dr Boston, patient was well informed.. Vascular ulcer left lateral lower leg, redressed , done as ordered.
--- NOTE | 2021-10-20 15:38 | NUR ---
COURT HEARING: Pt's probable cause hearing was upheld for gravely disabled adult.
[2021-10-20 15:41] VITALS: BP 107/54
--- NOTE | 2021-10-20 16:00 | NUR ---
Gps/Loading Supervisor- Somewhat argumentative with the staff this pm, wanting copies of her Psych records, was look at the pictures of her wounds. Patient was informed she can request copies of her pertinent medical records when she leaves. Anxious , demanding behavior , wants to know staff first and last name what their title, informed patient we cant do that . Instructed and encouraged to stay and attend her group therapy, instead staying infront of the Nurses station. Patient requesting for a Writ Hearing per Veterinarian Poultry Scarlet, form was filed faxed to the Court w/ confirmation receipt .
[2021-10-20] MEDS: OLANZAPINE 5 MG TABLET PO SCH (20:03)
[2021-10-20] MEDS: DOCUSATE SODIUM 100 MG CAPSULE PO SCH (20:03)
[2021-10-20] MEDS: ATORVASTATIN 10 MG TABLET PO SCH (20:03)
[2021-10-20] MEDS: ACETAMINOPHEN 325 MG TABLET PO PRN (20:03)
[2021-10-20 20:12] VITALS: BP 153/41
--- NOTE | 2021-10-21 06:18 | NUR ---
GPS: Remain calm and cooperative with meds and care. no agitation noted at this time. resting in bed comfortably. slept 7.30 hrs through the night.
[2021-10-21] MEDS: PANTOPRAZOLE SODIUM 40 MG TABLET.DR PO SCH (06:24)
[2021-10-21] MEDS: DIVALPROEX SPRINKLE 125 MG CAP.SPRINK PO SCH ×2 (08:44→21:00)
[2021-10-21] MEDS: OLANZAPINE 2.5 MG TABLET PO SCH ×2 (08:44→16:26)
[2021-10-21] MEDS: ASPIRIN EC 81 MG TABLET.DR PO SCH (08:44)
[2021-10-21] MEDS: FUROSEMIDE 20 MG TABLET PO SCH (08:44)
[2021-10-21] MEDS: PROTEIN SUPPLEMENT (PROSTAT) 30 ML LIQUID PO SCH (08:45)
[2021-10-21] MEDS: APIXABAN 5 MG TABLET PO SCH ×2 (08:46→16:26)
[2021-10-21] MEDS: AMMONIUM LACTATE 12% LOTION 225 GM BOTTLE TP SCH (08:54)
[2021-10-21] MEDS: CADEXOMER IODINE 40 GM TUBE TOP SCH (08:54)
[2021-10-21] MEDS: THERAHONEY GEL 1.5 OZ TUBE TOP SCH (08:55)
[2021-10-21] MEDS: CLOTRIMAZOLE/BETAMET DIPROP CREAM 15 GM TUBE TOP SCH ×2 (08:55→21:08)
[2021-10-21] MEDS: REMEDY ESSENTIAL ZINC PASTE 113 GM TOP SCH ×2 (08:55→21:07)
[2021-10-21 09:20] VITALS: BP 152/72
--- NOTE | 2021-10-21 11:31 | NUR ---
GPS: Nursing Notes: Thought Disorder: Patient is awake and responding to her name, needs assistance with ADL's, unsteady gait, using a w/c to move around the unit, believes that she can take care of herself, stated "I have someone that comes home and help me out..", before she came to the hospital, she was living in her car, forgetful at times, unable to formulate a viable plan for self care, episode of trying to cheek her medications, but took all her medications with a lot of prompting, unable to formulate a viable plan for self care, continue with treatment plan.
[2021-10-21] MEDS: ACETAMINOPHEN 325 MG TABLET PO PRN ×2 (15:54→21:05)
[2021-10-21 16:05] VITALS: BP 122/76
[2021-10-21 20:00] VITALS: BP 113/58
[2021-10-21] MEDS: OLANZAPINE 5 MG TABLET PO SCH (21:00)
[2021-10-21] MEDS: DOCUSATE SODIUM 100 MG CAPSULE PO SCH (21:05)
[2021-10-21] MEDS: ATORVASTATIN 10 MG TABLET PO SCH (21:06)
[2021-10-22 07:30] VITALS: BP 147/83
[2021-10-22] MEDS: AMMONIUM LACTATE 12% LOTION 225 GM BOTTLE TP SCH (08:23)
[2021-10-22] MEDS: CADEXOMER IODINE 40 GM TUBE TOP SCH (08:23)
[2021-10-22] MEDS: THERAHONEY GEL 1.5 OZ TUBE TOP SCH (08:23)
[2021-10-22] MEDS: REMEDY ESSENTIAL ZINC PASTE 113 GM TOP SCH ×2 (08:24→20:42)
[2021-10-22] MEDS: CLOTRIMAZOLE/BETAMET DIPROP CREAM 15 GM TUBE TOP SCH ×2 (08:24→20:43)
[2021-10-22] MEDS: OLANZAPINE 2.5 MG TABLET PO SCH ×2 (08:42→16:14)
[2021-10-22] MEDS: ASPIRIN EC 81 MG TABLET.DR PO SCH (08:42)
[2021-10-22] MEDS: DIVALPROEX SPRINKLE 125 MG CAP.SPRINK PO SCH ×2 (08:42→20:43)
[2021-10-22] MEDS: FUROSEMIDE 20 MG TABLET PO SCH (08:42)
[2021-10-22] MEDS: APIXABAN 5 MG TABLET PO SCH ×2 (08:44→16:14)
[2021-10-22] MEDS: PROTEIN SUPPLEMENT (PROSTAT) 30 ML LIQUID PO SCH (08:44)
[2021-10-22] MEDS: PANTOPRAZOLE SODIUM 40 MG TABLET.DR PO SCH (08:44)
--- NOTE | 2021-10-22 12:29 | NUR ---
GPS: Nursing Notes: Thought Disorder: Patient is awake and responding to her name, gets easily irritable when redirected, needs assistance with ADL's, having a weak and unsteady gait, staff provided her with w/c to move around the unit, forgetful at times, believes that she can take care of herself, but unable to formulate a viable plan for self care, unkempt appearance, needs a lot of prompting to be compliant with her medications, resistant with nursing care, argumentative at times, needy, continue to monitor for safety, continue with treatment plan.
[2021-10-22 15:16] VITALS: BP 145/88
[2021-10-22 20:00] VITALS: BP 141/84
[2021-10-22] MEDS: DOCUSATE SODIUM 100 MG CAPSULE PO SCH (20:40)
[2021-10-22] MEDS: OLANZAPINE 5 MG TABLET PO SCH (20:40)
[2021-10-22] MEDS: ACETAMINOPHEN 325 MG TABLET PO PRN (20:40)
[2021-10-22] MEDS: ATORVASTATIN 10 MG TABLET PO SCH (20:42)
[2021-10-23] MEDS: PANTOPRAZOLE SODIUM 40 MG TABLET.DR PO SCH (05:43)
[2021-10-23 07:30] VITALS: BP 133/78
[2021-10-23] MEDS: DIVALPROEX SPRINKLE 125 MG CAP.SPRINK PO SCH (08:27)
[2021-10-23] MEDS: ASPIRIN EC 81 MG TABLET.DR PO SCH (08:28)
[2021-10-23] MEDS: PROTEIN SUPPLEMENT (PROSTAT) 30 ML LIQUID PO SCH (08:28)
[2021-10-23] MEDS: FUROSEMIDE 20 MG TABLET PO SCH (08:28)
[2021-10-23] MEDS: APIXABAN 5 MG TABLET PO SCH (08:28)
[2021-10-23] MEDS: OLANZAPINE 2.5 MG TABLET PO SCH (08:28)
[2021-10-23] MEDS: REMEDY ESSENTIAL ZINC PASTE 113 GM TOP SCH (08:29)
[2021-10-23] MEDS: AMMONIUM LACTATE 12% LOTION 225 GM BOTTLE TP SCH (08:29)
[2021-10-23] MEDS: THERAHONEY GEL 1.5 OZ TUBE TOP SCH (08:29)
[2021-10-23] MEDS: CADEXOMER IODINE 40 GM TUBE TOP SCH (08:30)
[2021-10-23] MEDS: CLOTRIMAZOLE/BETAMET DIPROP CREAM 15 GM TUBE TOP SCH (08:30)
--- NOTE | 2021-10-23 09:12 | NUR ---
CM Discharge Note: Pt will be discharged to [facility] ([phone]) [address] [place] [address] via Ambulance transportation at 11AM. CM spoke with admin coordinator, Chiquita at the facility who states they are ready to accept the patient today. Pt is aware and agreeable with discharge plans. Pt is alert and oriented x4, is unable to plan for self-care at this time; however, is willing to accept care at SNF. Pt denies any suicidal or homicidal ideation. Pt will follow-up at the facility with Psychiatrist, Dr. Boston and Rivet Tapping Machine Operator, Dr. Lai. Pt presents with calm mood and congruent affect. PHARMACY: [facility] ([phone]) [phone] [id number].
--- NOTE | 2021-10-23 10:12 | NUR ---
GPS: Nursing Notes: Refusing For Pictures To Be Taken: Patient is awake and responding to her name, angry affect, gets irritable when redirected, refusing for staff to take pictures of her wounds, continue to monitor for safety, continue with discharge process, continue with treatment plan.
[2021-10-23] MEDS: ACETAMINOPHEN 325 MG TABLET PO PRN (10:40)
--- NOTE | 2021-10-23 12:00 | NUR ---
GPS: Nursing Notes: Discharge Notes: Patient is awake and responding to her name, poor anger management, A/Ox4, argumentative with staff, denies SI/HI, denies AH/VH, denies pain or discomfort, denies SOB, discharge to [place] at [address] [place] [address] [phone] , report given to Cecilia - LANIE final inspection supervisor, took all her belongings with her, transported to facility via ambulance. Patient will follow up with Dr. Boston (psychiatrist) and Dr. Lai (activity aide) at the facility for aftercare.
== END 2021-10-23 12:00 | DRG 885 ==
LOC: GPS 07:40
PROVIDERS: ADMIT Nurse Practitioner Psychiatric/Mental Health; ATTEND Internal Medicine
DX: F31.9 Bipolar disorder, unspecified (principal); E43 Unspecified severe protein-calorie malnutrition; I11.0 Hypertensive heart disease with heart failure; I50.33 Acute on chronic diastolic (congestive) heart failure; D68.59 Other primary thrombophilia; I87.312 Chronic venous hypertension (idiopathic) with ulcer of left lower extremity; L97.829 Non-pressure chronic ulcer of other part of left lower leg with unspecified severity; Z59.02 Unsheltered homelessness; Z74.09 Other reduced mobility; I48.0 Paroxysmal atrial fibrillation; B36.9 Superficial mycosis, unspecified; E66.9 Obesity, unspecified; F29 Unspecified psychosis not due to a substance or known physiological condition; Z91.19 Patient's noncompliance with other medical treatment and regimen; Z90.710 Acquired absence of both cervix and uterus; Z79.899 Other long term (current) drug therapy; I73.9 Peripheral vascular disease, unspecified; Z56.0 Unemployment, unspecified; F41.9 Anxiety disorder, unspecified; M79.662 Pain in left lower leg; Z85.42 Personal history of malignant neoplasm of other parts of uterus; Y84.2 Radiological procedure and radiotherapy as the cause of abnormal reaction of the patient, or of later complication, without mention of misadventure at the time of the procedure; Y78.8 Miscellaneous radiological devices associated with adverse incidents, not elsewhere classified; Y92.89 Other specified places as the place of occurrence of the external cause; I89.0 Lymphedema, not elsewhere classified; Z68.34 Body mass index [BMI] 34.0-34.9, adult; Z20.822 Contact with and (suspected) exposure to COVID-19
CPT/HCPCS: 36415; 80164; 97161; A6209